=== PATIENT | female | born 1945 | race African-American/Black ===

== ENCOUNTER 2017-07-19 19:03 | Inpatient (IN) ==
--- NOTE | 2017-07-19 19:29 | Emergency Department Note ---
Arrival - Arrival Chief Complaint: Altered Mental Status ED Nursing Triage Note: Pt arrives via ems from [facility] for further eval of altered mental status and abnormal findings of ct. Pt has history of dementia and according to family she has worsened over the past 2 weeks. PT is awake alert and oriented to self and place at times. Mode of Arrival: Stretcher Limitations: No Limitations Source: Patient, Family Time Seen by Provider: 07/19/17 19:25 - History of Present Illness HPI Narrative: This 71-year-old black female presents on transfer from [facility] with a history of the last 12 hours having severe dizziness and ataxia to the point that she could not ambulate. Her nieces found her in her bed this morning because she could not get out of bed because of dizziness. Subsequent evaluation at [facility] revealed on CT evidence of new cerebellar infarct versus a mass. The patient does have chronic dementia but carries on conversations normally with orientation to person and place. The nieces state this morning she was quite confused. At no time did the patient have complaints of chest pain, shortness of breath, nausea, vomiting, headache, slurred speech, or focal deficit. On evaluation at this time she seems very with it with orientation to person, time, and to a lesser degree place Onset (ago): hour(s) (Patient presents 12 hours post onset of symptoms) Date of Last Menstrual Period: pm Allergies/Adverse Reactions: Allergies Allergy/AdvReac Type Severity Reaction Status Date / Time No Known Allergies Allergy Verified 07/19/17 19:16 Home Medications: Home Medications Medication Instructions Recorded Confirmed Type Unable To Obtain [Unable to Obtain] 07/19/17 07/19/17 History Review of System - Review of System 12 point system: reviewed and no additional remarkable complaints except as stated - Review of System Constitutional: Present: as per HPI Respiratory: Present: as per HPI Cardiovascular: Present: as per HPI Gastrointestinal: Present: as per HPI Neurological: Present: as per HPI Medical,Surgical,& Family Hx - Medical History Cardio: History of: Hypertension Neurology: History of: Dementia - Social History Smoking Status: Never smoker Frequency of Alcohol Use: None Type of Drug Use: Unknown Exam Physical Examination: GENERAL: Well developed, well nourished elderly black female in no acute distress. HEENT: Normocephalic. No trauma. Moist mucous membranes. Absent right eye no nystagmus ENT NML NECK: Supple. No adenopathy. CARDIAC: Regular. No murmurs. Heart rate 110 CHEST: Clear to auscultation. No respiratory distress. O2 sat 97% ABDOMEN: Soft. Nontender. Active bowel sounds. EXTREMITIES: No trauma. Normal ROM. No pedal edema. SKIN: No diaphoresis. No rash. NEURO: Alert. Oriented to person and time less so to place. No focal deficits. Vital Signs: Vital Signs Temperature 99.5 F 07/19/17 19:03 Pulse Rate 107 H 07/19/17 19:03 Respiratory Rate 18 07/19/17 19:17 Blood Pressure 192/72 07/19/17 19:03 O2 Sat by Pulse Oximetry 97 07/19/17 19:03 Course - Reevaluation(s) Reevaluation #1: Family presents expectant of admission - Consultations Consultation #1: Discussed with hospitalist service who will admit for further evaluation treatment. Results - Labs Labs: Lab per [place] revealed white blood cell count 10,000, hematocrit 36, glucose 174, BUN 13, creatinine 0.6, sodium 143, potassium 3.4, CK-MB negative CK total 107, troponin negative - Diagnostic Findings Procedure: Chest x-ray: image reviewed by me, report reviewed by me (Chest x- ray per [place] cardiomegaly, status post partial resection of the right lung), CT: image reviewed by me, report reviewed by me (CT head: Infarction in the right cerebellum although mass cannot be excluded with evidence of some mass- effect on the right. Mesencephalic cistern microvascular ischemia noted) Disposition Clinical Impression: Cerebellar infarct, Mild Alzheimer's, Rule out cerebellar mass Case discussed with: patient, patient's family Disposition: Still a Patient Condition: Stable Time of Disposition: 19:41
[2017-07-19] MEDS ORDERED: LABETALOL 20 MG/4 ML SYRINGE IV PRN (20:28)
[2017-07-19] MEDS ORDERED: LABETALOL 20 MG/4 ML SYRINGE IV ONE (20:58)
--- NOTE | 2017-07-19 21:05 | Hospitalist History & Physical ---
Assessment and Plan - Time spent with patient Time spent with patient: Greater than 30 minutes (1) CVA (cerebral vascular accident) Status: Acute Assessment and plan: Admit to hospitalist services. Consult neurology. Consult PT/OT/ST/SS. Neuro checks and vital signs Q1 hour x 4 then Q4 hours. MRI head w/o contrast. Carotid US. Bedside swallow screen. Lipid panel. HA1C. Serial troponins. Repeat CBC and BMP in AM. ASA 325 mg daily. Labetalol 10 mg IV PRN for SBP>220 or DBP >120 O2 per unit protocol. This patient is a full code. Current Visit: Yes (2) HTN (hypertension) Status: Chronic Assessment and plan: Patient denies Hx of HTN and taking any medications. However, initial BP in the ED was 192/72. Labetalol 10 mg IV once for SBP >220 or DBP > 120 followed by labetolol drip. Continue to monitor. Current Visit: Yes (3) Hyperglycemia Status: Acute Assessment and plan: The patient denies any history of DM and takes no diabetes medications. However , labs drawn at [facility] indicate a BG of 174. Obtain HA1c Regular Diet for now; adjust as necessary based on HA1c results. Current Visit: Yes (4) Dementia Status: Chronic Assessment and plan: Patient denies history of dementia and becomes argumentative when it is discussed. She takes no medications for it. Her nieces, however have noted significant mental status changes over the last year and are now concerned about her living alone and continuing to drive. Consult CM/SS. Current Visit: Yes (5) DVT prophylaxis Status: Acute Assessment and plan: Lovenox 40 mg SQ daily. Current Visit: Yes History of Present Illness Chief complaint: AMS History of present illness: Ms. Pollard is a 71 year old female with a past history of dementia and HTN who was transferred to the ED of [facility] from [facility] where she presented with complaints of dizziness, weakness, decreased LOC and AMS. Her CT head performed at [facility] suggested possible CVA or Mass needing MRI for differentiation , so she was transferred to [facility]. Upon examination, she reports that she woke up this morning with a severe headache. When she got up, she was dizzy and weak and she fell. She was eventually able to get her back to bed. When her niece arrived, she was unable to get out of bed to open the door. She denies any past medical history and denies taking any routine medications. Her nieces check on her regularly and state that she is normally very active and able to walk >3 miles to the store. They also report that the patient still drives and lives independently, though signs of her dementia are increasing. They feel she is ready for some type of assistance, but the patient is reluctant. Hospitalist services were consulted, and the patient will be admitted for further evaluation and treatment. Home Medications Medication Instructions Recorded Confirmed Type Unable To Obtain [Unable to Obtain] 07/19/17 07/19/17 History Allergies Allergy/AdvReac Type Severity Reaction Status Date / Time No Known Allergies Allergy Verified 07/19/17 19:16 Medical,Surgical,& Family Hx - Medical History Cardio: History of: Hypertension Neurology: History of: Dementia HEENT: History of: Eye Problem (right eye blindness) Endocrine: No history of: Diabetes Mellitus (IDDM), Diabetes Mellitus (NIDDM) Respiratory: No history of: Asthma, COPD Genitourinary: No history of: Problems Gastrointestinal: No history of: GI Problems Musculoskeletal: No history of: Back/Neck Problems Hematology: No history of: Bleeding Problems, Clotting Problems, Sickle Cell Disease Other: No history of: Cancer - Family History Family History: noncontributory - Social History Smoking Status: Never smoker Have you smoked in the last 12 months: No Frequency of Alcohol Use: None Type of Drug Use: None Marital Status: Lives With:: Alone Functional capacity: independent ambulation 12 point system: reviewed and no additional remarkable complaints except as stated - Constitutional Constitutional: Present: headache(s), weakness. Absent: chills, fever(s) - EENT Eyes: Present: loss of vision (right eye). Absent: blurry vision, diplopia Ears: Absent: decreased hearing, ear discharge, ear pain Nose, mouth and throat: Present: headache(s). Absent: dysphagia, nasal congestion, sore throat - Cardiovascular Cardiovascular: Absent: chest pain at rest, chest pain with activity, dyspnea, edema, orthopnea, palpitations - Respiratory Respiratory: Absent: cough, dyspnea, wheezing - Gastrointestinal Gastrointestinal: Absent: abdominal pain, constipation, diarrhea, hematochezia, melena, nausea, vomiting - Genitourinary Genitourinary: Absent: dysuria, urinary frequency - Musculoskeletal Musculoskeletal: Present: muscle weakness. Absent: arthralgias, joint swelling , myalgias - Neurological Neurological: Present: abnormal gait, confusion, disequilibrium, dizziness, headache(s). Absent: focal weakness, numbness, paresthesias, syncope - Psychiatric Psychiatric: Present: confusion, memory loss. Absent: anxiety, depression - Endocrine Endocrine: Absent: cold intolerance, polydipsia, polyphagia, polyuria - Hematologic/Lymphatic Hematologic/Lymphatic: Absent: easy bleeding, easy bruising Exam - Constitutional Vitals: Period Temp Pulse Resp BP Sys/Chopra Pulse Ox Last 24 Hr 99.5 F-99.5 F 89-107 18-20 185-192/72-89 97-98 Exam: Constitutional System: Afebrile. Awake, alert and oriented x 2. [No] distress. [ No] tremulousness. Head: Normocephalic, atraumatic. Ears, Nose and Throat System: No pain or tenderness. No epistaxis or discharge. Right eye blindness. Eyes System: Pupils equal, round, and reactive. Extraocular muscles intact. Neck: Supple, without adenopathy, [No] jugular venous distention. No thyromegaly , neck mass, or prior surgery apparent. Respiratory System: Chest [clear] to auscultation. Cardiovascular System: Heart with [regular] rate and rhythm. [No] murmur. GI System: Abdomen [soft], [non]tender. [Normo]active bowel sounds present. Musculoskeletal System: limbs with [no] pedal edema. [Full] distal pulses. Normal capillary refill. Neurological System: [No discernable] sensory deficit. [No] aphasia. RUE strength 4/5; all other extremities 5/5. Psychiatric System: Patient demonstrates some amount of confusion in attempting to recall events of today. She also gets easily agitated when discussion of her diagnosis of dementia occurs. Results - Labs Lab Results: I have reviewed the past 24 hour labs
[2017-07-19] MEDS: ENOXAPARIN 40 MG/0.4 ML SYRINGE SUBCUT SCH (22:33)
[2017-07-19 22:52] LABS: Risk Ratio 2.78; Troponin I Only 0.074 NG/ML (0.00-0.045); VLDL CHOLESTEROL 11.8 MG/DL
--- NOTE | 2017-07-20 06:03 | EKG Report ---
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
--- NOTE | 2017-07-20 06:43 | Physician Query Form ---
CLICK EDIT DOCUMENT TO SELECT QUERY ANSWER --> OK --> SIGN PROVIDERS: Make your selection(s) from the choices in EACH section by typing an "x" and enter comments in the comment section. Divya Alva RN, CCDS Certified Clinical Pleasure Craft Sailor (W) [phone] (F) [phone] [email or web address] Please use your independent medical judgment in providing your response. This request does not imply that any particular answer is desired or expected. CLINICAL INDICATORS: (Providers should not edit this section) "Patient denies Hx of HTN and taking any medications. However, initial BP in the ED was 192/72. Labetalol 10 mg IV once for SBP >220 or DBP > 120 followed by labetolol drip." Note: Hypertensive crises can present as hypertensive urgency or hypertensive emergency. Clarify which, if any of the following, is a more accurate diagnosis reflecting the type and acuity of the documented hypertension: TYPE: (x ) Hypertensive Urgency ( ) Hypertensive Emergency ( ) Uncontrolled chronic hypertension at baseline ( ) Other, please specify: ( ) Clinically unable to determine COMMENTS: Criteria Source - Up to Date (This topic last updated: Jan 27, 2016) HYPERTENSIVE URGENCY: Severe hypertension (usually a diastolic blood pressure above 120 mmHg) in asymptomatic patients is referred to as hypertensive urgency. There is no proven benefit from rapid reduction in blood pressure in asymptomatic patients who have no evidence of acute end-organ damage and are at little short-term risk. HYPERTENSIVE EMERGENCY: Severe hypertension (usually a diastolic blood pressure above 120 mmHg) with evidence of acute end-organ damage is defined as a hypertensive emergency. A hypertensive emergency can be life threatening and requires immediate treatment, usually with parenteral medications in a monitored setting. PLEASE ALSO DOCUMENT RESPONSE IN PROGRESS NOTES AND/OR DISCHARGE SUMMARY Use of terms such as suspected, likely, or probable (associated with a specific diagnosis that is being evaluated, monitored, or treated as if it exists) are acceptable and can be restated in the discharge summary if not ruled out. MTDD
[2017-07-20 07:18] LABS: Basophils % 0.4 % (0.0-0.8); Eosinophils % 0.1 % (0.00-10.9); Hematocrit 35.2 VOL% (35.7-47.0); Hemoglobin 11.8 GM/DL (12.0-16.0); Immature Granulocytes % 0.4 %; Immature Granulocytes Absolute 0.04 #; Lymphocytes # 1.4 10*3/uL (1.4-4.0); Lymphocytes % 13.3 % (21.3-54.2); Mean Corpuscular HGB Conc 33.5 GM/DL (32-36); Mean Corpuscular Hemoglobin 27 PG (27-34); Mean Corpuscular Volume 81.9 FL (87-102); Mean Platelet Volume 9.9 FL (9.6-12.0); Monocytes # 0.7 10*3/uL (0.11-0.8); Monocytes % 7.1 % (1.7-12.7); Neutrophils # 8.3 10*3/uL (1.4-7.4); Neutrophils % 78.7 % (38.7-73.9); Platelet Count 327 T/CUMM (130-400); Red Cell Distribution Width 14.8 % (9.3-17.3); White Blood Count 10.5 T/CUMM (4-12)
[2017-07-20 07:54] LABS: Calcium 9.7 MG/DL (8.5-10.1); Osmolality,Calculated 283.3 MOS/KG (273-304); Potassium 3.3 MMOL/L (3.5-5.1)
[2017-07-20] MEDS ORDERED: ASPIRIN 325 MG TABLET PO SCH ×2 (09:00→14:48)
--- NOTE | 2017-07-20 10:23 | ECHO Report ---
Scott Pollard Exam Date: 07/20/2017 08:42 Referring Physician: Technologist: Geri Jensen Age: 71 Ht (in): 67 Wt (lb): 105 Gender: F Exam Location: [facility], [place] Echo Indications: DVT prophylaxis, dementia, CVA, HTN, hyperglycemia, weakness BP: 192 / 72 HR: 53 Rhythm: Sinus Technical Quality: Technically difficult study IMPRESSIONS Left ventricular ejection fraction is estimated at 55 %. There is no regional wall motion abnormality. Mild concentric left ventricular hypertrophy with grade I diastolic dysfunction. Tricuspid regurgitation velocities suggest a RVSP of 16 mmHg + RAP. Mildly thickened mitral valve with mild mitral regurgitation. MEASUREMENTS (Male / Female) Normal Values 2D ECHO LV Diastolic Diameter PLAX 4.0 cm 4.2 - 5.9 / 3.9 - 5.3 cm LV Systolic Diameter PLAX 2.5 cm LV Fractional Shortening PLAX 36.2 % IVS Diastolic Thickness 1.1 cm 0.6 - 1.0 / 0.6 - 0.9 cm LVPW Diastolic Thickness 1.0 cm 0.6 - 1.0 / 0.6 - 0.9 cm Aortic Root Diameter 2.2 cm LA Systolic Diameter LX 3.1 cm 3.0 - 4.0 / 2.7 - 3.8 cm DOPPLER TR Peak Velocity 197.0 cm/s TR Peak Gradient 15.5 mmHg FINDINGS Left Ventricle Normal left ventricular cavity size. Mild concentric left ventricular hypertrophy with grade I diastolic dysfunction. Left ventricular ejection fraction is estimated at 55 %. There is no regional wall motion abnormality. Right Ventricle Normal right ventricular size. Right Atrium Normal right atrial size. Left Atrium Normal left atrial size. Mitral Valve Mildly thickened mitral valve with mild mitral regurgitation. Aortic Valve The aortic valve is trileaflet and has normal motion. Tricuspid Valve Morphologically normal tricuspid valve. Trace tricuspid valve regurgitation. Tricuspid regurgitation velocities suggest a RVSP of 16 mmHg + RAP. Pulmonic Valve Pulmonic valve not well visualized. Pericardium No pericardial effusion. Aorta Normal size aortic root and proximal ascending aorta. Connie Kuhn (Electronically Signed) Final Date: 20 July 2017 10:22
--- NOTE | 2017-07-20 12:33 | Ultrasound Report ---
History is CVA Grayscale, spectral Doppler, and color flow analysis performed and interpreted There is a mild amount of soft and partially calcified plaque on the right and moderate in the left proximal internal carotid arteries Maximum systolic velocities are 123 in the right and 184 on the left Peak systolic ratios are 1.5 the right and 2.3 in the left There is antegrade flow in both vertebral arteries NASCET criteria utilized Impression: 1. findings weakly suggestive of a 50-79% diameter stenosis of the proximal ICA on the left. Correlation with MRA suggested 2. Less than 50% diameter stenosis the proximal right ICA PROCEDURE INTERPRETED AT [facility] DEPARTMENT OF RADIOLOGY Final Report Signed by: Dr. Violeta Valentin
[2017-07-20] MEDS ORDERED: ONDANSETRON 4 MG/2 ML VIAL IV PRN (13:38)
--- NOTE | 2017-07-20 13:50 | Hospitalist Progress Note ---
Assessment and Plan (1) Dizziness Status: Acute Assessment and plan: to r/o acute CVA. Carotid dopplers showed a findings weakly suggestive of a 50-79% diameter stenosis of the proximal ICA on the left. Less than 50% diameter stenosis the proximal right ICA.Echo showed a left ventricular ejection fraction is estimated at 55 %. There is no regional wall motion abnormality.Mild concentric left ventricular hypertrophy with grade I diastolic dysfunction. Plan Follow MRI report Await Neurology Meclizine prn PT/Ot consults continue with ASA/Plavix Current Visit: Yes (2) HTN (hypertension) Status: Chronic Assessment and plan: continue current regime Current Visit: Yes (3) Hyperglycemia Status: Acute Assessment and plan: most likely newly diagnosed DM. HbA1c- 6.5. continue with SSC Insulin and accucheks. Current Visit: Yes (4) Dementia Status: Chronic Assessment and plan: case manger-dc planning Current Visit: Yes (5) Hypokalemia Status: Acute Assessment and plan: will replete, get bmp, Mg in am Current Visit: Yes (6) Dyslipidemia Status: Acute Assessment and plan: resume home statins Current Visit: Yes (7) Carotid stenosis, left Status: Acute Assessment and plan: Carotid doppler showed a weakly suggestive of a 50-79% diameter stenosis of the proximal ICA on the left. Correlation with MRA suggested 2. Less than 50% diameter stenosis the proximal right ICA Plan CTA of the neck Current Visit: Yes Hospitalist: Subjective Interval history: Patient seen, she was still complaining of dizziness. Her carotid doppler which showed a findings weakly suggestive of a 50-79% diameter stenosis of the proximal ICA on the left.MRI report is pending. Exam - Constitutional Vitals: Period Temp Pulse Resp BP Sys/Chopra Pulse Ox Last 24 Hr 98.4 F-99.5 F 71-107 16-20 148-192/56-92 94-99 General appearance: no acute distress - Head Head exam: Present: normal inspection - Respiratory Respiratory exam: Present: clear to auscultation bilaterally - Cardiovascular Cardiovascular exam: Present: regular rate and rhythm - GI/Abdominal GI/Abdominal exam: Present: normal bowel sounds - Extremities Exam Extremities exam: Present: normal inspection - Neurological Exam Neurological exam: Present: alert, oriented X3 Results - Labs CBC & BMP: 07/20/17 07:06 07/20/17 07:06 Lab Results: I have reviewed the past 24 hour labs
[2017-07-20] MEDS ORDERED: POTASSIUM CHLORIDE 20 MEQ/15 ML UDCUP PO ONE (13:57)
[2017-07-20] MEDS ORDERED: MECLIZINE 25 MG TABLET PO PRN ×2 (14:36→14:39)
--- NOTE | 2017-07-20 14:39 | Magnetic Resonance Report ---
History: Altered mental status. History of dementia. Dizziness and weakness. Severe headache Date: 07/20/2017 Study: MRI brain without IV contrast Comparison exam: No previous brain MRI available The brain was imaged in 3 planes on the 1.5 Nayeli magnet without IV contrast, to include FLAIR, diffusion, T2, and T1-weighted sequences. The exam was performed within 24 hours of admission. There is an area of restricted diffusion compatible with acute ischemia measuring at least 4.6 x 4.6 x 1.9 cm in the right cerebellar hemisphere inferiorly, more posteriorly than anteriorly. There is also a punctate focus of acute ischemia in the left cerebellar hemisphere. There is no parenchymal hemorrhage. The ventricles are midline in position without evidence of hydrocephalus. There is no Chiari I malformation. There is no gross pituitary mass. There is no potential area of mass effect otherwise. There is a small amount of patchy increased FLAIR and T2 signal in the periventricular white matter without mass effect compatible with changes of small vessel disease. There is normal flow void in the superior sagittal sinus. There is no acute extra-axial hematoma. Impression: Large area of acute ischemia in the right cerebellar hemisphere, predominantly in a right PICA distribution. A second focus of ischemia in the left cerebellar hemisphere would also raise the question of basilar artery level ischemic event. There is a gross flow void in the basilar artery. No parenchymal hemorrhage Mild periventricular small vessel disease PROCEDURE INTERPRETED AT [facility] DEPARTMENT OF RADIOLOGY Final Report Signed by: Dr. Maru Reyes
--- NOTE | 2017-07-20 18:43 | CT Report ---
CT angio neck Indication: Dizziness. CT ANGIOGRAM CAROTID ARTERIES DLP: 106 mGy*cm. One or more of the following dose reduction techniques was used: Automated exposure control, adjustment of the mA and/or kV according the patient size, or use of iterative reconstruction techniques. Technique: Axial thin cuts CT images were obtained from the aortic arch through the skull base during the arterial phase of contrast injection. 3-D vascular MIPs reconstructions and multiplanar reformats were evaluated. Omnipaque 350, 80 cc given. Comparison: None. Findings: Severity of stenosis based on NASCET criteria. Reference downstream ICA diameters are 3.6 mm on the right and 4.0 mm on the left. Minimal atheromatous disease is present at both carotid bifurcations. No measurable stenosis on the right. Left ICA is narrowed to 3.0 mm, consistent with a 25% diameter stenosis, inconsequential. Both external carotid arteries are patent. The left vertebral artery is patent through the skull base. The right vertebral artery arterial enhancement attenuates mid cervical spine, and there is densely calcified atheromatous disease at the origin of the right vertebral artery. Suspect only nominal right vertebral artery flow is present. Calcified atheromatous disease of the aortic arch is significant. No ostial stenosis of the brachiocephalic or left common carotid artery. The left subclavian artery appears slightly narrowed to a diameter of 3.7 mm, measuring 7.2 mm downstream, consistent with 50% diameter stenosis at the left subclavian origin. Both subclavian arteries are patent distally. No superior mediastinal lymphadenopathy. No axillary or cervical chain lymphadenopathy. Interstitial scarring of the pulmonary apices, emphysema noted. Nodular mucosal thickening of the left maxillary sinus is present. The remainder paranasal sinuses appear clear. Impression: 1. No measurable stenosis of the right ICA origin. Only 25% diameter stenosis left ICA origin, inconsequential. 2. Calcified atheromatous disease, especially the aortic arch. 50% diameter stenosis at the origin of the left subclavian artery. 3. Significant pulmonary emphysema. Scarring of the pulmonary apices. 4. Minimal left maxillary sinusitis. PROCEDURE INTERPRETED AT [facility] DEPARTMENT OF RADIOLOGY Final Report Signed by: Buster Mohr M.D.
[2017-07-20] MEDS: ATORVASTATIN 40 MG TABLET PO SCH (20:32)
[2017-07-20] MEDS: ENOXAPARIN 40 MG/0.4 ML SYRINGE SUBCUT SCH (20:33)
[2017-07-20] MEDS ORDERED: SIMVASTATIN 20 MG TABLET PO SCH (21:00)
--- NOTE | 2017-07-21 04:10 | Event Note ---
Nurse called to report that patient fell while attempting to go to the bathroom. Nurse states that the patient reports hitting her forehead on the garbage can and her left knee on the ground. The nurse reports that a red caro is on the knee, but no skin changes to patient's head. Vital signs stable. Patient is awake, alert and oriented. CT head w/o contrast and xray of left knee ordered.
[2017-07-21 05:55] LABS: Basophils % 0.5 % (0.0-0.8); Eosinophils % 0.2 % (0.00-10.9); Hematocrit 37.6 VOL% (35.7-47.0); Hemoglobin 12.4 GM/DL (12.0-16.0); Immature Granulocytes % 0.5 %; Immature Granulocytes Absolute 0.04 #; Lymphocytes # 1.2 10*3/uL (1.4-4.0); Lymphocytes % 14.4 % (21.3-54.2); Mean Corpuscular Hemoglobin 27 PG (27-34); Mean Corpuscular Volume 81.9 FL (87-102); Mean Platelet Volume 9.9 FL (9.6-12.0); Monocytes # 0.8 10*3/uL (0.11-0.8); Neutrophils # 6.3 10*3/uL (1.4-7.4); Neutrophils % 75.4 % (38.7-73.9); Platelet Count 312 T/CUMM (130-400); Red Blood Count 4.59 MC/CUMM (3.8-5.5); Red Cell Distribution Width 14.9 % (9.3-17.3); White Blood Count 8.3 T/CUMM (4-12)
--- NOTE | 2017-07-21 06:34 | XRay Report ---
Left knee, 3 views History is fall with left knee injury and pain There is diffuse demineralization. There are miniscule osteophytes with minimal medial compartment joint space loss Appearance of the medial tibial plateau felt to be a chronic. No definite fracture or joint effusion seen. No aggressive periosteal reaction seen Impression: 1. Diffuse demineralization 2. Minimal degenerative changes PROCEDURE INTERPRETED AT [facility] DEPARTMENT OF RADIOLOGY Final Report Signed by: Dr. Violeta Valentin
[2017-07-21 06:35] LABS: Calcium 9.2 MG/DL (8.5-10.1); Potassium 3.3 MMOL/L (3.5-5.1)
--- NOTE | 2017-07-21 06:35 | CT Report ---
History is fall with head injury and pain Comparison 07/19/2017 Again seen is a late acute or early subacute-appearing cortical infarct in the right cerebellum. No new areas of hemorrhage or mass effects seen no other more acute cortical stroke identified Elongation of the globe of the right orbit again demonstrated. The large of remote lamina papyracea fracture on the left again seen Impression: A late acute or early subacute right cerebellar infarct again demonstrated The CT exam was performed using one or more of the following dose reduction techniques: Automated exposure control, adjustment of the mA and/or kV according to patient size, or use of iterative reconstruction technique. PROCEDURE INTERPRETED AT [facility] DEPARTMENT OF RADIOLOGY Final Report Signed by: Dr. Violeta Valentin
[2017-07-21] MEDS: ASPIRIN CHEW 81 MG TABLET PO SCH (09:38)
[2017-07-21] MEDS: CLOPIDOGREL 75 MG TABLET PO SCH (09:38)
[2017-07-21] MEDS ORDERED: ALBUTEROL/IPRATROPIUM 3 ML NEB RESP TX PRN (09:49)
--- NOTE | 2017-07-21 11:39 | XRay Report ---
History is productive cough Comparison 07/19/2017 Mediastinal and hilar contours unchanged. Clips and suture lines in the right hilum again seen Blunting the right costophrenic angle remains without the right infiltrates seen. Impression: No interval change described above PROCEDURE INTERPRETED AT [facility] DEPARTMENT OF RADIOLOGY Final Report Signed by: Dr. Violeta Valentin
--- NOTE | 2017-07-21 14:49 | Neurology Consult Note ---
History of Present Illness History of present illness: Ms. Pollard is a 71 year old female with a past history of dementia and HTN who was admitted to [facility] with complaints of dizziness, weakness, decreased LOC and change in mental state. Her CT head performed at the outside hospital suggested possible CVA or Mass needing MRI for differentiation, so she was transferred to [facility]. she reports that she woke up yesterday morning with a severe headache. When she got up, she was dizzy and weak and she fell. She was eventually able to get her back to bed. When her niece arrived, she was unable to get out of bed to open the door. She denies any past medical history and denies taking any routine medications. She quit smoking sometime ago. Her nieces check on her regularly and state that she is normally very active and able to walk >3 miles to the store. They also report that the patient still drives and lives independently, though signs of her dementia are increasing. MRI of the brain reveals large right cerebellar hemisphere acute infarct. Carotid Dopplers are unremarkable. CT angiogram are negative. Echocardiogram reveals ejection fraction of 55%. Patient has already been taking Plavix at home. This is an embolic stroke Home Medications Medication Instructions Recorded Confirmed Type Clopidogrel [Plavix] 75 mg PO DAILY 07/20/17 07/20/17 History Doxycycline Hyclate 100 mg PO BID 07/20/17 07/20/17 History Insulin Detemir [Levemir FlexPen] 20 units SUBCUT BEDTIME 07/20/17 07/20/17 History Lisinopril 20 mg PO DAILY 07/20/17 07/20/17 History Simvastatin 20 mg PO BEDTIME 07/20/17 07/20/17 History glipiZIDE XL [Glucotrol Xl] 10 mg PO DAILY W/BREAKFAST 07/20/17 07/20/17 History Allergies Allergy/AdvReac Type Severity Reaction Status Date / Time No Known Allergies Allergy Verified 07/19/17 19:16 12 point system: reviewed and no additional remarkable complaints except as stated Medical,Surgical,& Family Hx - Medical History Cardio: History of: Hypertension Neurology: History of: Dementia HEENT: History of: Eye Problem (right eye blindness) Endocrine: No history of: Diabetes Mellitus (IDDM), Diabetes Mellitus (NIDDM) Respiratory: History of: Lung Cancer No history of: Asthma, COPD Genitourinary: No history of: Problems Gastrointestinal: No history of: GI Problems Musculoskeletal: No history of: Back/Neck Problems Hematology: No history of: Bleeding Problems, Clotting Problems, Sickle Cell Disease Other: No history of: Cancer - Surgical History Thoracic Surgeries: Surgical HX of;: Lobectomy (Partial right) Patient denies;: Organ Transplant Neurologic Surgeries: Patient denies: Neurologic Surgery Abdominal Surgeries: Patient denies: Abdominal Surgery Reproductive Surgeries: Patient denies;: Genitourinary Surgery, Gynecologic Surgery - Social History Smoking Status: Never smoker Frequency of Alcohol Use: None Type of Drug Use: None Exam - Constitutional Vitals: Period Temp Pulse Resp BP Sys/Chopra Pulse Ox Last 24 Hr 96.9 F-99.0 F 78-103 17-20 147-171/62-88 90-98 Exam: GENERAL: Patient is in no acute distress. NECK: Neck is supple. There is no JVD. No carotid bruits present. No thyroid masses. CVS: First and second heart sounds are normal. There is no S3 present. Regular rate and rhythm. RESPIRATORY: Lungs are clear to auscultation without any rales or rhonchi. ABDOMEN: Soft and non-tender. Bowel sounds are present. There is no hepatosplenomegaly. EXT: There is no palpable edema. Peripheral pulses are present. Skin: No rashes Central Nervous system: General: Alert, awake Speech: Fluent Comprehension: Intact and normal Facial expressions: Normal Cranial Nerves: CN1/Olfactory: Normal CN II/ Optic: Normal, Visual Walsh unreliable CN III, and : VIDA & EOMI CN V: Normal & intact CN VII: face is symmetric CNVIII: Normal CN XI/X/XI/XII: Intact and Normal Motor: Bulk and Tone is normal. Strength in the right 3/5 Strength in the left 5/5 Sensory: Grossly intact for all the modalities of PP, LT and temp sense Reflexes: 1+ and symmetrical Cerebellar function: Significant dysmetria upon go to nose and heel to shine testing in the right. Toes: Equivocal Gait: Not tested at this time Results - Labs CBC & BMP: 07/21/17 05:39 07/21/17 05:39 Assessment and Plan (1) Acute CVA (cerebrovascular accident) Status: Acute Assessment and plan: Stop aspirin and Plavix. Start Eliquis 5 mg twice daily Consult TMR Current Visit: Yes (2) Dementia Status: Chronic Assessment and plan: Add Namenda 5 mg p.o. twice daily Thank you for the consult Current Visit: Yes Specialty Discharge - Follow Up or Referrals
--- NOTE | 2017-07-21 15:31 | Hospitalist Progress Note ---
Assessment and Plan (1) Acute CVA (cerebrovascular accident) Status: Acute Current Visit: Yes (2) CVA (cerebral vascular accident) Status: Acute Assessment and plan: Appreciate input from neurology. Continue physical therapy occupational therapy. Current Visit: Yes Qualifiers: CVA mechanism: embolism (3) Dementia Status: Chronic Current Visit: Yes (4) HTN (hypertension) Status: Chronic Current Visit: Yes Qualifiers: Hypertension type: essential hypertension Qualified Code(s): I10 - Essential (primary) hypertension Hospitalist: Subjective Interval history: The patient is resting comfortably. She does have an embolic stroke. Neurology has seen the patient today. Continue with physical therapy Occupation Therapy. Plan for CBC BMP in a.m. Exam - Constitutional Vitals: Period Temp Pulse Resp BP Sys/Chopra Pulse Ox Last 24 Hr 96.9 F-99.0 F 78-103 17-20 147-171/62-88 90-98 General appearance: normal weight - Head Head exam: Present: normal inspection - Respiratory Respiratory exam: Present: clear to auscultation bilaterally - Cardiovascular Cardiovascular exam: Present: regular rate and rhythm - GI/Abdominal GI/Abdominal exam: Present: normal bowel sounds - Extremities Exam Extremities exam: Present: normal inspection - Neurological Exam Neurological exam: Present: alert - Psychiatric Psychiatric exam: Present: normal affect, normal mood - Skin Skin exam: Present: normal color Results - Labs CBC & BMP: 07/21/17 05:39 07/21/17 05:39 Specialty Discharge - Follow Up or Referrals
[2017-07-21] MEDS: ENOXAPARIN 40 MG/0.4 ML SYRINGE SUBCUT SCH (20:24)
[2017-07-21] MEDS: ATORVASTATIN 40 MG TABLET PO SCH (20:24)
[2017-07-22 06:43] LABS: Basophils % 0.3 % (0.0-0.8); Eosinophils # 0.1 10*3/uL (0.0-0.87); Eosinophils % 0.7 % (0.00-10.9); Hematocrit 36.4 VOL% (35.7-47.0); Hemoglobin 12.2 GM/DL (12.0-16.0); Immature Granulocytes % 0.2 %; Immature Granulocytes Absolute 0.02 #; Lymphocytes # 1.2 10*3/uL (1.4-4.0); Lymphocytes % 13.9 % (21.3-54.2); Mean Corpuscular HGB Conc 33.5 GM/DL (32-36); Mean Corpuscular Hemoglobin 27 PG (27-34); Mean Corpuscular Volume 81.3 FL (87-102); Mean Platelet Volume 10.1 FL (9.6-12.0); Monocytes # 0.8 10*3/uL (0.11-0.8); Monocytes % 8.8 % (1.7-12.7); Neutrophils # 6.6 10*3/uL (1.4-7.4); Neutrophils % 76.1 % (38.7-73.9); Platelet Count 269 T/CUMM (130-400); Red Blood Count 4.48 MC/CUMM (3.8-5.5); White Blood Count 8.7 T/CUMM (4-12)
[2017-07-22 07:15] LABS: Calcium 8.5 MG/DL (8.5-10.1); Magnesium 2.3 MG/DL (1.8-2.4); Osmolality,Calculated 277.7 MOS/KG (273-304); Potassium 3.3 MMOL/L (3.5-5.1)
[2017-07-22 07:16] LABS: INR 1.1; PT Patient Result 11.5 SECS; Partial Thromboplastin Time 30.5 SECS (0-40)
--- NOTE | 2017-07-22 07:50 | XRay Report ---
Exam: XR chest 1V portable Date: 07/22/2017 4:00 AM Indication: Cough Comparison: 07/21/2017 Technical: AP portable Findings: Surgical clips present in the right hilar region. Some volume loss right lung with mild scarring present. No obvious infiltrate or effusion. ASVD is present. Arthritic change present over the shoulders bilaterally. The heart is normal in size. Impression: 1. Previous surgical changes right hilus and scarring blood loss right lung without acute pathology present on today's study. 2. Component of underlying mild COPD suspected PROCEDURE INTERPRETED AT [facility] DEPARTMENT OF RADIOLOGY Final Report Signed by: Dr. Chuck Crawford
[2017-07-22] MEDS: ASPIRIN CHEW 81 MG TABLET PO SCH (09:43)
[2017-07-22] MEDS: CLOPIDOGREL 75 MG TABLET PO SCH (09:43)
--- NOTE | 2017-07-22 11:26 | Hospitalist Progress Note ---
Assessment and Plan (1) CVA (cerebral vascular accident) Status: Acute Assessment and plan: She is status post a large right cerebellar cerebrovascular accident. She is ready for discharge placement. Current Visit: Yes Qualifiers: CVA mechanism: embolism (2) HTN (hypertension) Status: Chronic Assessment and plan: Her blood pressure today is 145/72. Current Visit: Yes Qualifiers: Hypertension type: essential hypertension Qualified Code(s): I10 - Essential (primary) hypertension (3) Dementia Status: Chronic Current Visit: Yes (4) Hypokalemia Status: Acute Assessment and plan: Her potassium today is 3.3. She is receiving potassium chloride replacement. Current Visit: Yes Hospitalist: Subjective Interval history: Patient is doing well with no new complaints. She is status post a CVA. Discharge planning for placement has been initiated. Exam - Constitutional Vitals: Period Temp Pulse Resp BP Sys/Chopra Pulse Ox Last 24 Hr 97.8 F-100.8 F 101-120 18-22 145-175/72-86 90-94 General appearance: no acute distress - Head Head exam: Present: normal inspection - Neck Neck exam: Present: normal inspection - Respiratory Respiratory exam: Present: clear to auscultation bilaterally - Cardiovascular Cardiovascular exam: Present: regular rate and rhythm - GI/Abdominal GI/Abdominal exam: Present: normal bowel sounds, soft, other (Nontender with no palpable masses or hepatosplenomegaly.) - Extremities Exam Extremities exam: Present: normal inspection - Neurological Exam Neurological exam: Present: alert - Skin Skin exam: Present: normal color, warm, intact Results - Labs CBC & BMP: 07/22/17 06:17 07/22/17 06:17 Specialty Discharge - Follow Up or Referrals
[2017-07-22] MEDS: POTASSIUM CHLORIDE 20 MEQ TABLET PO SCH (14:24)
[2017-07-22] MEDS: BISACODYL 5 MG TABLET PO PRN (14:24)
[2017-07-22] MEDS: ENOXAPARIN 40 MG/0.4 ML SYRINGE SUBCUT SCH (20:10)
[2017-07-22] MEDS: ATORVASTATIN 40 MG TABLET PO SCH (20:10)
[2017-07-23 05:49] LABS: Basophils % 0.4 % (0.0-0.8); Eosinophils # 0.1 10*3/uL (0.0-0.87); Eosinophils % 0.6 % (0.00-10.9); Hematocrit 36.9 VOL% (35.7-47.0); Hemoglobin 12.2 GM/DL (12.0-16.0); Immature Granulocytes % 0.6 %; Immature Granulocytes Absolute 0.07 #; Lymphocytes # 1.3 10*3/uL (1.4-4.0); Lymphocytes % 11.7 % (21.3-54.2); Mean Corpuscular HGB Conc 33.1 GM/DL (32-36); Mean Corpuscular Hemoglobin 27 PG (27-34); Mean Corpuscular Volume 82.2 FL (87-102); Mean Platelet Volume 9.7 FL (9.6-12.0); Monocytes # 0.9 10*3/uL (0.11-0.8); Monocytes % 7.6 % (1.7-12.7); Neutrophils % 79.1 % (38.7-73.9); Platelet Count 240 T/CUMM (130-400); Red Blood Count 4.49 MC/CUMM (3.8-5.5); Red Cell Distribution Width 14.9 % (9.3-17.3); White Blood Count 11.3 T/CUMM (4-12)
[2017-07-23 06:17] LABS: Calcium 8.9 MG/DL (8.5-10.1); Osmolality,Calculated 281.4 MOS/KG (273-304); Potassium 3.7 MMOL/L (3.5-5.1)
[2017-07-23] MEDS ORDERED: POTASSIUM CHLORIDE 20 MEQ TABLET PO SCH (09:00)
[2017-07-23] MEDS ORDERED: LISINOPRIL 20 MG TABLET PO SCH (09:00)
[2017-07-23] MEDS: ASPIRIN CHEW 81 MG TABLET PO SCH (09:01)
[2017-07-23] MEDS: CLOPIDOGREL 75 MG TABLET PO SCH (09:01)
[2017-07-23] MEDS: BISACODYL 5 MG TABLET PO PRN (09:01)
[2017-07-23] MEDS: POTASSIUM CHLORIDE 20 MEQ TABLET PO SCH (09:01)
[2017-07-23 12:15] VITALS: BP 151/64
--- NOTE | 2017-07-23 13:04 | Hospitalist Progress Note ---
Assessment and Plan (1) Acute CVA (cerebrovascular accident) Status: Acute Current Visit: Yes (2) CVA (cerebral vascular accident) Status: Acute Assessment and plan: Appreciate input from neurology. Continue physical therapy occupational therapy. Awaiting to transfer to rehab hospital. Current Visit: Yes Qualifiers: CVA mechanism: embolism (3) Dementia Status: Chronic Current Visit: Yes (4) HTN (hypertension) Status: Chronic Current Visit: Yes Qualifiers: Hypertension type: essential hypertension Qualified Code(s): I10 - Essential (primary) hypertension Hospitalist: Subjective Interval history: The patient is sitting up in bed visiting with family. Family member feels that Ms. Pollard is a little stronger. She is scheduled to transfer to [facility] at some point today. No fevers or chills. No complaints. Exam - Constitutional Vitals: Period Temp Pulse Resp BP Sys/Chopra Pulse Ox Last 24 Hr 97.4 F-101.2 F 84-134 16-20 139-152/60-77 90-93 General appearance: normal weight - Head Head exam: Present: normal inspection - Eye Eye exam: Present: EOMI - ENT ENT exam: Present: normal exam - Neck Neck exam: Present: normal inspection - Respiratory Respiratory exam: Present: clear to auscultation bilaterally - Cardiovascular Cardiovascular exam: Present: regular rate and rhythm - GI/Abdominal GI/Abdominal exam: Present: normal bowel sounds - Neurological Exam Neurological exam: Present: alert - Psychiatric Psychiatric exam: Present: normal affect, normal mood Results - Labs CBC & BMP: 07/23/17 05:28 07/23/17 05:28 Specialty Discharge - Follow Up or Referrals
[2017-07-23] MEDS ORDERED: ACETAMINOPHEN 325 MG TABLET PO ONE (13:51)
--- NOTE | 2017-07-23 14:07 | Discharge Summary ---
Hospital Course - Hospital Course Hospital Course: This hospitalization included patient admitted in transfer from [facility] for CVA. She had a follow-up MRI that confirmed right cerebellar CVA. She was evaluated by Dr. Lorenzana and underwent evaluation physical therapy. The patient was hemodynamically stable. She had an echocardiogram that showed an EF of approximately 55%. CT angiogram showed 25% stenosis on the right approximately 50% stenosis on the left. Moreover, she had evidence of pulmonary emphysema. Chest x-ray showed no evidence of infiltrates. Glucoses have been less than 150. She has been able to tolerate her diet. Urine culture has been negative. She participated with physical therapy. At present she has been accepted to [facility]. - Time spent with patient Time with patient DS: Greater than 30 minutes (35 minutes) Diagnosis - Discharge Diagnosis (1) Acute CVA (cerebrovascular accident) Status: Acute (2) CVA (cerebral vascular accident) Status: Acute (3) Dementia Status: Chronic (4) HTN (hypertension) Status: Chronic Specialty Discharge - Follow Up or Referrals Discharge Plan - Discharge Data Disposition: Disch/Xfer-Ip Rehab Fac Condition at Discharge: Stable Discharge Diet: diabetic diet Activity: as per physical therapy Hygiene: no restrictions Contact your physician if you experience:: fever over 101 - Discharge Medications New Aspirin Chew Tab 81 mg PO DAILY tablet Meclizine [Antivert] 25 mg PO Q4H PRN tablet PRN Reason: Dizziness Albuterol/Ipratropium Neb [Duoneb] 3 ml RESP TX RT Q4H PRN PRN Reason: Shortness Of Breath/Wheezing Bisacodyl Tab [Dulcolax Tab] 10 mg PO DAILY PRN tablet PRN Reason: Constipation Continue Clopidogrel [Plavix] 75 mg PO DAILY Doxycycline Hyclate 100 mg PO BID Simvastatin 20 mg PO BEDTIME Lisinopril 20 mg PO DAILY glipiZIDE XL [Glucotrol Xl] 10 mg PO DAILY W/BREAKFAST Discontinued Insulin Detemir [Levemir FlexPen] 20 units SUBCUT BEDTIME - Follow Up or Referral - Forms/Instructions Instructions: Ischemic Stroke (DC), Self Care Measures After a Stroke (DC) Exam - Constitutional Vitals: Period Temp Pulse Resp BP Sys/Chopra Pulse Ox Last 24 Hr 97.4 F-101.2 F 84-134 16-20 139-152/60-77 90-93 General appearance: over weight - Head Head exam: Present: normal inspection - Neck Neck exam: Present: normal inspection - Respiratory Respiratory exam: Present: clear to auscultation bilaterally - Cardiovascular Cardiovascular exam: Present: regular rate and rhythm - GI/Abdominal GI/Abdominal exam: Present: normal bowel sounds - Extremities Exam Extremities exam: Present: normal inspection, full ROM - Neurological Exam Neurological exam: Present: alert - Psychiatric Psychiatric exam: Present: normal affect, normal mood, other (History of dementia) - Skin Skin exam: Present: normal color, warm Discharge Results Procedures and tests throughout hospitalization: Pending Orders 07/22/17 13:43 Urine Culture Routine Labs on day of discharge: Labs from last 24 hours 07/23/17 07/23/17 05:28 05:28 WBC 11.3 RBC 4.49 Hgb 12.2 Hct 36.9 MCV 82.2 L MCH 27 MCHC 33.1 RDW 14.9 Plt Count 240 MPV 9.7 Neut % (Auto) 79.1 H Lymph % (Auto) 11.7 L [place] % (Auto) 7.6 Eos % (Auto) 0.6 Baso % (Auto) 0.4 Neut # (Auto) 9.0 H Lymph # (Auto) 1.3 L [place] # (Auto) 0.9 H Eos # (Auto) 0.1 Baso # (Auto) 0.0 Immature Gran % 0.6 Nucleated RBC % 0.0 Immature Gran # 0.07 Nucleated RBCs # 0.00 Immature Plt Fraction 0.0 Sodium 140 Potassium 3.7 Chloride 102 Carbon Dioxide 31 Anion Gap 10.7 BUN 16 Creatinine 0.60 GFR Calculation 92 BUN/Creatinine Ratio 26.00 H Glucose 132 H Calculated Osmolality 281.4 Calcium 8.9 Preliminary micro results at discharge 07/22/17 13:43 Urine Culture - Preliminary Urine,Voided No Growth at 24 hours. DS: Provider Date of admission: 07/19/17 20:28 Primary care physician: . No PCP Attending physician on admission: Buster Dempsey MD Consults: 07/19/17 20:28 Consult to Case Mgmt/Social Srvs [CONS] Routine Reason for Case Mgmt/Social Srvs: Discharge Planning Consult to Occupational Therapy [CONS] Routine Reason for Occupational Therapy: Evaluate and Treat Consult Comment: Stroke Consult to Physical Therapy [CONS] Routine Reason for Physical Therapy: Evaluate and Treat Consult Comment: stroke 07/19/17 20:45 Consult to Physician [CONS] Routine Comment: AMS, CVA symptoms. Ok to see in AM. Consulting Provider: Bunny Goins Consult to Specialist Group: Neurology When should Consulting Provider be notified: Now Date Notified: 07/20/17 Time Notified: 10:01 Consult Notification Comment: Dr. Goins on bypass call back on 07/21 @10:56 Dr goins still on bypass 07/20/17 01:23 Consult to Dietitian [CONS] Routine Reason for Dietitian: Dietary Consult 07/20/17 16:43 Consult to Physician [CONS] Routine Comment: Consulting Provider: Avery Elizabeth Person Notified: office aware Date Notified: 07/20/17 Time Notified: 16:44 Consult Notification Comment: talk to Magdalena @10:50 07/21 she stated was out of town.. be back monday07/21/17 12:16 Consult to Case Mgmt/Social Srvs [CONS] Routine Reason for Case Mgmt/Social Srvs: Rehab Consult Comment: [facility] to go [facility] Monday Discharging clinician: Henrique Taylor Jr., MD
== END 2017-07-23 15:43 | DRG 66 ==
LOC: EDUNIT# → EDBD → N.ED 19:03 → SUATTDRO 20:28 → N.EDINP 20:28 → N.5E 21:39
PROVIDERS: ADMIT Internal Medicine; ATTEND Internal Medicine Nephrology

== ENCOUNTER 2021-10-22 18:14 | Inpatient (IN) ==
[2021-10-22] MEDS ORDERED: hydrALAZINE 20 MG/1 ML VIAL IV STA (18:31)
[2021-10-22 18:54] LABS: Eosinophils # 0.1 10*3/uL (0.0-0.87); Eosinophils % 1.5 % (0.00-10.9); Hematocrit 29.6 VOL% (35.7-47.0); Immature Granulocytes % 0.2 %; Immature Granulocytes Absolute 0.01 #; Lymphocytes # 1.4 10*3/uL (1.4-4.0); Lymphocytes % 34.2 % (21.3-54.2); Mean Corpuscular HGB Conc 30.4 GM/DL (32-36); Mean Corpuscular Volume 86.3 FL (87-102); Mean Platelet Volume 10.1 FL (9.6-12.0); Monocytes % 10.3 % (1.7-12.7); Neutrophils % 52.8 % (38.7-73.9); Platelet Count 238 T/CUMM (130-400); Red Blood Count 3.43 MC/CUMM (3.8-5.5); Red Cell Distribution Width 18.6 % (9.3-17.3); White Blood Count 4.1 T/CUMM (4-12)
[2021-10-22 19:14] LABS: Alanine Aminotransferase 14 U/L (13-56); Albumin 2.8 G/DL (3.4-5.0); Alkaline Phosphatase 94 U/L (45-117); Aspartate Amino Transferase 11 U/L (0-37); Bilirubin,Total < 0.39 MG/DL (0.20-1.00); Blood Urea Nitrogen 22 MG/DL (7-18); Calcium 7.8 MG/DL (8.5-10.1); Carbon Dioxide 27 MMOL/L (21-32); Estimated Glom Filtration Rate 58 ML/MIN; Glucose 108 MG/DL (74-106); Osmolality,Calculated 291.7 MOS/KG (273-304); Potassium 3.2 MMOL/L (3.5-5.1); Sodium 145 MMOL/L (136-145); Total Protein 6.1 G/DL (6.4-8.2)
[2021-10-22 19:20] LABS: PT Patient Result 11.2 SECS (10.5-12.0)
[2021-10-22 19:22] LABS: Bilirubin,Urine Negative (Negative); Blood, Urine Negative (Negative); Glucose,Urine (UA) Negative (Negative); Hyaline Casts,Urine 3 /LPF (0-3); Ketones,Urine Negative (Negative); Mucus,Urine Occasional /LPF (Occasional); Nitrite,Urine Negative (Negative); Protein,Urine Negative; RBC,Urine 2 /HPF (0-4); Squamous Epithelial Cell,Urine Occasional /HPF (0-10); Urine Appearance CLEAR (Clear); Urine Color Yellow (Yellow); Urine Specific Gravity 1.017 (1.001-1.035)
[2021-10-22] MEDS ORDERED: ASPIRIN CHEW 81 MG TABLET PO STA (20:11)
[2021-10-22] MEDS ORDERED: METOPROLOL TARTRATE 5 MG/5 ML VIAL IV STA (20:11)
[2021-10-22] MEDS ORDERED: DEXTROSE 50% 25 GM/50 ML VIAL IV PRN (20:23)
[2021-10-22] MEDS ORDERED: GLUCAGON 1 MG VIAL IM PRN ×2 (20:23)
[2021-10-22] MEDS ORDERED: ONDANSETRON 4 MG/2 ML VIAL IV PRN (20:23)
[2021-10-22] MEDS ORDERED: NICOTINE 21 MG/24 HR PATCH TRANSDERM PRN (20:23)
[2021-10-22] MEDS ORDERED: MORPHINE 2 MG/1 ML SYRINGE IV PRN (20:23)
[2021-10-22] MEDS ORDERED: hydrALAZINE 20 MG/1 ML VIAL IV PRN (20:23)
[2021-10-22] MEDS ORDERED: DOCUSATE SODIUM 100 MG CAPSULE PO PRN (20:23)
[2021-10-22] MEDS ORDERED: diphenhydrAMINE CAP 25 MG CAPSULE PO PRN (20:23)
[2021-10-22] MEDS ORDERED: ACETAMINOPHEN 325 MG TABLET PO PRN (20:23)
[2021-10-22] MEDS ORDERED: guaiFENesin/DM ER 600-30 MG TABLET PO PRN (20:23)
[2021-10-22] MEDS ORDERED: HALOPERIDOL 5 MG/ML AMP IM STA (20:27)
[2021-10-22] MEDS ORDERED: DEXTROSE 50% 25 GM/50 ML SYRINGE IV PRN (20:27)
[2021-10-22] MEDS ORDERED: SODIUM CHLORIDE 0.9% 1,000 ML IV SCH (20:30)
[2021-10-22 20:43] LABS: Partial Thromboplastin Time > 211.8 SECS (23.8-32.1)
[2021-10-22 21:04] LABS: Folate 20.87 NG/ML (5.38-24.0); Vitamin B12 798 PG/ML (211-911)
[2021-10-22 21:19] LABS: Basophils % 0.7 % (0.0-0.8); Eosinophils # 0.1 10*3/uL (0.0-0.87); Hematocrit 36.1 VOL% (35.7-47.0); Immature Granulocytes % 0.7 %; Immature Granulocytes Absolute 0.03 #; Lymphocytes # 1.6 10*3/uL (1.4-4.0); Lymphocytes % 36.4 % (21.3-54.2); Mean Corpuscular HGB Conc 31.9 GM/DL (32-36); Mean Platelet Volume 9.9 FL (9.6-12.0); Monocytes % 8.9 % (1.7-12.7); Neutrophils % 51.3 % (38.7-73.9); Platelet Count 263 T/CUMM (130-400); Red Cell Distribution Width 18.6 % (9.3-17.3); White Blood Count 4.5 T/CUMM (4-12)
[2021-10-22 21:20] LABS: Hemoglobin 11.5 GM/DL (12.0-16.0)
[2021-10-22] MEDS ORDERED: LORazepam 2 MG/1 ML VIAL IV STA (21:49)
[2021-10-22 22:26] LABS: Sedimentation Rate-Westergren 42 MM/HR (0-30)
[2021-10-22] MEDS: amLODIPine 10 MG TABLET PO SCH (23:10)
[2021-10-22] MEDS: HEPARIN 5,000 UNIT/1 ML VIAL SUBCUT SCH (23:10)
[2021-10-23] MEDS ORDERED: DEXT 5% NACL 0.9% KCL 40 MEQ 40 MEQ/1,000 ML BAG IV SCH
[2021-10-23 05:05] LABS: Basophils % 0.5 % (0.0-0.8); Eosinophils # 0.1 10*3/uL (0.0-0.87); Eosinophils % 0.7 % (0.00-10.9); Hematocrit 34.4 VOL% (35.7-47.0); Hemoglobin 10.8 GM/DL (12.0-16.0); Immature Granulocytes % 0.5 %; Immature Granulocytes Absolute 0.04 #; Lymphocytes # 1.7 10*3/uL (1.4-4.0); Lymphocytes % 19.9 % (21.3-54.2); Mean Corpuscular HGB Conc 31.4 GM/DL (32-36); Mean Corpuscular Volume 83.9 FL (87-102); Mean Platelet Volume 9.9 FL (9.6-12.0); Monocytes % 8.2 % (1.7-12.7); Neutrophils % 70.2 % (38.7-73.9); Platelet Count 260 T/CUMM (130-400); Red Cell Distribution Width 18.6 % (9.3-17.3); White Blood Count 8.7 T/CUMM (4-12)
[2021-10-23 05:16] LABS: Partial Thromboplastin Time 24.5 SECS (23.8-32.1)
[2021-10-23 05:22] LABS: Calcium 9.1 MG/DL (8.5-10.1); Osmolality,Calculated 285.1 MOS/KG (273-304); Potassium 3.5 MMOL/L (3.5-5.1)
[2021-10-23] MEDS: MEMANTINE 5 MG TABLET PO SCH ×2 (10:22→21:59)
[2021-10-23] MEDS: lisinopriL 20 MG TABLET PO SCH (10:22)
[2021-10-23] MEDS: FERROUS SULFATE 325 MG TABLET PO SCH (10:22)
[2021-10-23] MEDS: ASPIRIN CHEW 81 MG TABLET PO SCH (10:22)
[2021-10-23] MEDS: PANTOPRAZOLE 40 MG TABLET PO SCH (10:23)
[2021-10-23] MEDS: CETIRIZINE 10 MG TABLET PO SCH (10:23)
[2021-10-23] MEDS: HEPARIN 5,000 UNIT/1 ML VIAL SUBCUT SCH ×2 (10:23→21:59)
[2021-10-23 12:08] LABS: % Iron Saturation 17.2 % (18-50); Ferritin 83.3 ng/mL (8-252)
[2021-10-23] MEDS: ZALEPLON 5 MG CAPSULE PO PRN (21:59)
[2021-10-23] MEDS: ATORVASTATIN 10 MG TABLET PO SCH (21:59)
[2021-10-23] MEDS: traZODone 50 MG TABLET PO SCH (21:59)
[2021-10-23] MEDS: DONEPEZIL 10 MG TABLET PO SCH (21:59)
[2021-10-23] MEDS: amLODIPine 10 MG TABLET PO SCH (21:59)
[2021-10-24] MEDS: lisinopriL 20 MG TABLET PO SCH (10:00)
[2021-10-24] MEDS: FERROUS SULFATE 325 MG TABLET PO SCH (10:00)
[2021-10-24] MEDS: PANTOPRAZOLE 40 MG TABLET PO SCH (10:00)
[2021-10-24] MEDS: CETIRIZINE 10 MG TABLET PO SCH (10:00)
[2021-10-24] MEDS: MEMANTINE 5 MG TABLET PO SCH ×2 (10:00→22:32)
[2021-10-24] MEDS: ASPIRIN CHEW 81 MG TABLET PO SCH (10:01)
[2021-10-24] MEDS: HEPARIN 5,000 UNIT/1 ML VIAL SUBCUT SCH ×2 (10:01→22:32)
[2021-10-24] MEDS: amLODIPine 10 MG TABLET PO SCH (22:32)
[2021-10-24] MEDS: ZALEPLON 5 MG CAPSULE PO PRN (22:32)
[2021-10-24] MEDS: traZODone 50 MG TABLET PO SCH (22:32)
[2021-10-24] MEDS: ATORVASTATIN 10 MG TABLET PO SCH (22:32)
[2021-10-24] MEDS: DONEPEZIL 10 MG TABLET PO SCH (22:32)
[2021-10-25 05:16] LABS: Albumin 3.2 G/DL (3.4-5.0); Bilirubin,Total 0.7 MG/DL (0.20-1.00); Calcium 9.3 MG/DL (8.5-10.1); Potassium 3.7 MMOL/L (3.5-5.1); Risk Ratio 2.81; Total Protein 7.5 G/DL (6.4-8.2); VLDL Cholesterol 17.2 MG/DL
[2021-10-25 05:31] LABS: Basophils % 0.4 % (0.0-0.8); Eosinophils % 0.5 % (0.00-10.9); Hematocrit 38.8 VOL% (35.7-47.0); Hemoglobin 12.2 GM/DL (12.0-16.0); Immature Granulocytes % 0.4 %; Immature Granulocytes Absolute 0.03 #; Lymphocytes # 1.7 10*3/uL (1.4-4.0); Lymphocytes % 20.5 % (21.3-54.2); Mean Corpuscular HGB Conc 31.4 GM/DL (32-36); Mean Corpuscular Volume 84.2 FL (87-102); Mean Platelet Volume 9.7 FL (9.6-12.0); Monocytes % 8.5 % (1.7-12.7); Neutrophils % 69.7 % (38.7-73.9); Platelet Count 293 T/CUMM (130-400); Red Blood Count 4.61 MC/CUMM (3.8-5.5); Red Cell Distribution Width 18.9 % (9.3-17.3); White Blood Count 8.3 T/CUMM (4-12)
[2021-10-25] MEDS: CETIRIZINE 10 MG TABLET PO SCH (08:30)
[2021-10-25] MEDS: HEPARIN 5,000 UNIT/1 ML VIAL SUBCUT SCH (08:30)
[2021-10-25] MEDS: FERROUS SULFATE 325 MG TABLET PO SCH (08:30)
[2021-10-25] MEDS: lisinopriL 20 MG TABLET PO SCH (08:30)
[2021-10-25] MEDS: MEMANTINE 5 MG TABLET PO SCH ×2 (08:30→21:02)
[2021-10-25] MEDS: PANTOPRAZOLE 40 MG TABLET PO SCH (08:30)
[2021-10-25] MEDS: ASPIRIN CHEW 81 MG TABLET PO SCH (08:30)
[2021-10-25 08:36] LABS: Hemoglobin A1 (Alkaline) 97.9 % (96.5-98.5); Hemoglobin A2 (Alkaline) 2.1 % (1.5-3.5)
[2021-10-25] MEDS ORDERED: ONDANSETRON 4 MG TABLET PO PRN (15:47)
[2021-10-25] MEDS ORDERED: ATORVASTATIN 40 MG TABLET PO SCH (21:00)
[2021-10-25] MEDS: TICAGRELOR 90 MG TABLET PO SCH (21:02)
[2021-10-25] MEDS: DOCUSATE SODIUM 100 MG CAPSULE PO SCH (21:02)
[2021-10-25] MEDS: traZODone 50 MG TABLET PO SCH (21:03)
[2021-10-25] MEDS: amLODIPine 10 MG TABLET PO SCH (21:04)
[2021-10-25] MEDS: DONEPEZIL 10 MG TABLET PO SCH (21:04)
[2021-10-26 05:27] LABS: Calcium 9.3 MG/DL (8.5-10.1); Osmolality,Calculated 283.7 MOS/KG (273-304); Potassium 3.9 MMOL/L (3.5-5.1)
[2021-10-26 06:45] LABS: Basophils # 0.1 10*3/uL (0.0-0.2); Basophils % 0.7 % (0.0-0.8); Eosinophils # 0.1 10*3/uL (0.0-0.87); Eosinophils % 0.7 % (0.00-10.9); Hematocrit 39.3 VOL% (35.7-47.0); Hemoglobin 12.1 GM/DL (12.0-16.0); Immature Granulocytes % 0.5 %; Immature Granulocytes Absolute 0.04 #; Lymphocytes # 1.4 10*3/uL (1.4-4.0); Lymphocytes % 19.5 % (21.3-54.2); Mean Corpuscular HGB Conc 30.8 GM/DL (32-36); Mean Corpuscular Volume 84.3 FL (87-102); Mean Platelet Volume 10.2 FL (9.6-12.0); Monocytes % 8.9 % (1.7-12.7); Neutrophils % 69.7 % (38.7-73.9); Platelet Count 322 T/CUMM (130-400); Red Blood Count 4.66 MC/CUMM (3.8-5.5); Red Cell Distribution Width 18.6 % (9.3-17.3); White Blood Count 7.4 T/CUMM (4-12)
[2021-10-26] MEDS: DOCUSATE SODIUM 100 MG CAPSULE PO SCH (08:42)
[2021-10-26] MEDS: ASPIRIN CHEW 81 MG TABLET PO SCH (08:42)
[2021-10-26] MEDS: lisinopriL 20 MG TABLET PO SCH (08:43)
[2021-10-26] MEDS: FERROUS SULFATE 325 MG TABLET PO SCH (08:43)
[2021-10-26] MEDS: TICAGRELOR 90 MG TABLET PO SCH (08:43)
[2021-10-26] MEDS: MEMANTINE 5 MG TABLET PO SCH (08:43)
[2021-10-26] MEDS: CETIRIZINE 10 MG TABLET PO SCH (08:43)
[2021-10-26] MEDS: PANTOPRAZOLE 40 MG TABLET PO SCH (08:43)
[2021-10-26] MEDS ORDERED: CLOPIDOGREL 75 MG TABLET PO SCH (09:00)
[2021-10-26] MEDS ORDERED: MULTIVITAMIN (CENTRUM) TABLET PO SCH (09:00)
[2021-10-26] MEDS ORDERED: ERGOCALCIFEROL 50,000 UNIT CAPSULE PO SCH (09:00)
[2021-10-26 12:25] VITALS: BP 121/76
== END 2021-10-26 16:27 | DRG 65 ==
LOC: EDUNIT# → EDBD → N.EDINP 18:14 → N.ED 18:14 → SUATTDRO 20:23 → N.5E 21:39
PROVIDERS: ADMIT Internal Medicine; ATTEND Internal Medicine

== ENCOUNTER 2021-11-09 12:18 | Inpatient (IN) ==
[2021-11-09 13:46] LABS: Basophils # 0.1 10*3/uL (0.0-0.2); Basophils % 0.4 % (0.0-0.8); Eosinophils # 0.1 10*3/uL (0.0-0.87); Eosinophils % 0.5 % (0.00-10.9); Hematocrit 35.8 VOL% (35.7-47.0); Hemoglobin 11.5 GM/DL (12.0-16.0); Immature Granulocytes % 0.5 %; Immature Granulocytes Absolute 0.07 #; Lymphocytes # 0.4 10*3/uL (1.4-4.0); Lymphocytes % 3.2 % (21.3-54.2); Mean Corpuscular HGB Conc 32.1 GM/DL (32-36); Mean Corpuscular Volume 83.6 FL (87-102); Mean Platelet Volume 10.6 FL (9.6-12.0); Monocytes % 2.8 % (1.7-12.7); Neutrophils % 92.6 % (38.7-73.9); Platelet Count 244 T/CUMM (130-400); Red Blood Count 4.28 MC/CUMM (3.8-5.5); Red Cell Distribution Width 17.5 % (9.3-17.3); White Blood Count 13.1 T/CUMM (4-12)
[2021-11-09 14:06] LABS: Calcium 9.4 MG/DL (8.5-10.1); Osmolality,Calculated 292.7 MOS/KG (273-304); Potassium 4.3 MMOL/L (3.5-5.1)
[2021-11-09 14:08] LABS: Band Neutrophils 2 % (0-10); Lymphocytes 3 % (20-55); Segmented Neutrophils 93 % (50-85); Total Cells Counted 100
[2021-11-09 14:10] LABS: Platelet Estimate Adequate
[2021-11-09 14:11] LABS: Ovalocytes Slight
[2021-11-09] MEDS ORDERED: GLUCAGON 1 MG VIAL IM PRN (14:21)
[2021-11-09] MEDS ORDERED: ACETAMINOPHEN 325 MG TABLET PO PRN ×2 (14:21→14:24)
[2021-11-09] MEDS ORDERED: ONDANSETRON 4 MG/2 ML VIAL IV PRN (14:21)
[2021-11-09] MEDS ORDERED: ONDANSETRON 4 MG TABLET PO PRN (14:24)
[2021-11-09] MEDS ORDERED: SODIUM CHLORIDE 0.9% 1,000 ML IV STA (14:27)
[2021-11-09] MEDS ORDERED: DEXTROSE 5% NACL 0.45% 1,000 ML IV SCH (14:30)
[2021-11-09] MEDS ORDERED: DEXTROSE 50% 25 GM/50 ML SYRINGE IV PRN (14:38)
[2021-11-09] MEDS ORDERED: ENOXAPARIN 40 MG/0.4 ML SYRINGE SUBCUT SCH (15:00)
[2021-11-09 15:35] LABS: Bacteria,Urine Occasional /HPF (Few); Bilirubin,Urine Negative (Negative); Blood, Urine Negative (Negative); Glucose,Urine (UA) 50 mg/dL (Negative); Ketones,Urine Negative (Negative); Mucus,Urine Occasional /LPF (Occasional); Nitrite,Urine Negative (Negative); Protein,Urine Negative; RBC,Urine <1 /HPF (0-4); Squamous Epithelial Cell,Urine Occasional /HPF (0-10); Urine Appearance CLEAR (Clear); Urine Color Yellow (Yellow); Urine Specific Gravity 1.016 (1.001-1.035); Urine Urobilinogen < 2.0 EU/DL (<2.0)
[2021-11-09] MEDS: SODIUM CHLORIDE 0.9% 1,000 ML IV SCH (17:41)
[2021-11-09] MEDS: DOCUSATE SODIUM 100 MG CAPSULE PO SCH (22:37)
[2021-11-09] MEDS: MEMANTINE 10 MG TABLET PO SCH (22:37)
[2021-11-09] MEDS: ATORVASTATIN 40 MG TABLET PO SCH (22:37)
[2021-11-09] MEDS: amLODIPine 10 MG TABLET PO SCH (22:37)
[2021-11-09] MEDS: traZODone 50 MG TABLET PO SCH (22:37)
[2021-11-09] MEDS: DONEPEZIL 10 MG TABLET PO SCH (22:38)
[2021-11-10 05:56] LABS: Calcium 9.1 MG/DL (8.5-10.1); Osmolality,Calculated 292.8 MOS/KG (273-304); Potassium 3.8 MMOL/L (3.5-5.1)
[2021-11-10] MEDS ORDERED: fentaNYL 100 MCG/2 ML VIAL ONE (06:52)
[2021-11-10] MEDS ORDERED: propofoL 200 MG/20 ML VIAL IV ONE (06:52)
[2021-11-10] MEDS ORDERED: LIDOCAINE 2% 5 ML VIAL ONE (06:52)
[2021-11-10 07:20] LABS: Basophils # 0.1 10*3/uL (0.0-0.2); Basophils % 0.5 % (0.0-0.8); Eosinophils # 0.3 10*3/uL (0.0-0.87); Eosinophils % 2.3 % (0.00-10.9); Hematocrit 36.1 VOL% (35.7-47.0); Hemoglobin 11.4 GM/DL (12.0-16.0); Immature Granulocytes % 0.8 %; Lymphocytes # 1.3 10*3/uL (1.4-4.0); Lymphocytes % 9.8 % (21.3-54.2); Mean Corpuscular HGB Conc 31.6 GM/DL (32-36); Mean Corpuscular Volume 84.3 FL (87-102); Mean Platelet Volume 10.2 FL (9.6-12.0); Monocytes % 7.2 % (1.7-12.7); Neutrophils % 79.4 % (38.7-73.9); Platelet Count 246 T/CUMM (130-400); Red Blood Count 4.28 MC/CUMM (3.8-5.5); Red Cell Distribution Width 17.1 % (9.3-17.3); White Blood Count 13.2 T/CUMM (4-12)
[2021-11-10] MEDS ORDERED: KETOROLAC 30 MG/1 ML VIAL ONE (08:07)
[2021-11-10] MEDS ORDERED: ACETAMINOPHEN INJ 1,000 MG/100 ML VIAL IV ONE (08:07)
[2021-11-10] MEDS ORDERED: SEVOFLURANE 1 UNIT/15 MINUTE INH ONE (08:07)
[2021-11-10] MEDS ORDERED: ACETAMINOPHEN INJ 0 MG/0 ML VIAL IV ONE (08:07)
[2021-11-10] MEDS ORDERED: BACITRACIN OINT 0.9 GM PACK TOP ONE (08:13)
[2021-11-10] MEDS ORDERED: LACTATED RINGERS 1,000 ML IV ONE (08:15)
[2021-11-10] MEDS ORDERED: MORPHINE 2 MG/1 ML SYRINGE IV PRN (08:23)
[2021-11-10] MEDS: MULTIVITAMIN (CENTRUM) TABLET PO SCH (09:00)
[2021-11-10] MEDS: CETIRIZINE 10 MG TABLET PO SCH (09:00)
[2021-11-10] MEDS: MEMANTINE 10 MG TABLET PO SCH ×2 (09:00→22:50)
[2021-11-10] MEDS: ASPIRIN CHEW 81 MG TABLET PO SCH (09:00)
[2021-11-10] MEDS: PANTOPRAZOLE 40 MG TABLET PO SCH (09:00)
[2021-11-10] MEDS ORDERED: PANTOPRAZOLE 40 MG TABLET PO SCH (09:00)
[2021-11-10] MEDS: FERROUS SULFATE 325 MG TABLET PO SCH (09:00)
[2021-11-10] MEDS ORDERED: lisinopriL 20 MG TABLET PO SCH (09:00)
[2021-11-10] MEDS: DOCUSATE SODIUM 100 MG CAPSULE PO SCH ×2 (09:00→22:50)
[2021-11-10] MEDS: traZODone 50 MG TABLET PO SCH (22:48)
[2021-11-10] MEDS: DONEPEZIL 10 MG TABLET PO SCH (22:49)
[2021-11-10] MEDS: ATORVASTATIN 40 MG TABLET PO SCH (22:49)
[2021-11-10] MEDS: amLODIPine 10 MG TABLET PO SCH (22:50)
[2021-11-10] MEDS: HYDROcod/ACETAMIN 7.5-325 MG/15 ML UDCUP PER TUBE PRN (23:19)
[2021-11-11] MEDS: SODIUM CHLORIDE 0.9% 1,000 ML IV SCH ×2 (00:13→12:54)
[2021-11-11] MEDS: HYDROcod/ACETAMIN 7.5-325 MG/15 ML UDCUP PER TUBE PRN (04:24)
[2021-11-11 05:03] LABS: Basophils # 0.1 10*3/uL (0.0-0.2); Basophils % 0.4 % (0.0-0.8); Eosinophils # 0.4 10*3/uL (0.0-0.87); Eosinophils % 3.3 % (0.00-10.9); Hematocrit 30.8 VOL% (35.7-47.0); Hemoglobin 9.8 GM/DL (12.0-16.0); Immature Granulocytes % 0.6 %; Immature Granulocytes Absolute 0.07 #; Lymphocytes # 0.9 10*3/uL (1.4-4.0); Lymphocytes % 6.9 % (21.3-54.2); Mean Corpuscular HGB Conc 31.8 GM/DL (32-36); Mean Corpuscular Volume 84.6 FL (87-102); Mean Platelet Volume 10.4 FL (9.6-12.0); Monocytes % 7.6 % (1.7-12.7); Neutrophils % 81.2 % (38.7-73.9); Platelet Count 239 T/CUMM (130-400); Red Blood Count 3.64 MC/CUMM (3.8-5.5); White Blood Count 12.4 T/CUMM (4-12)
[2021-11-11 05:42] LABS: Calcium 8.2 MG/DL (8.5-10.1); Potassium 4.3 MMOL/L (3.5-5.1)
[2021-11-11] MEDS ORDERED: TICAGRELOR 90 MG TABLET PEG SCH (09:00)
[2021-11-11] MEDS: FERROUS SULFATE 325 MG TABLET PO SCH (09:44)
[2021-11-11] MEDS: DOCUSATE SODIUM 100 MG CAPSULE PO SCH (09:44)
[2021-11-11] MEDS: PANTOPRAZOLE 40 MG TABLET PO SCH (09:44)
[2021-11-11] MEDS: MULTIVITAMIN (CENTRUM) TABLET PO SCH (09:45)
[2021-11-11] MEDS: MEMANTINE 10 MG TABLET PO SCH (09:45)
[2021-11-11] MEDS: ASPIRIN CHEW 81 MG TABLET PO SCH (09:45)
[2021-11-11] MEDS: CETIRIZINE 10 MG TABLET PO SCH (09:46)
[2021-11-11 16:50] VITALS: BP 138/49
[2021-11-16] MEDS ORDERED: ERGOCALCIFEROL 50,000 UNIT CAPSULE PO SCH (09:00)
== END 2021-11-11 16:30 | DRG 480 ==
LOC: EDBD → SUATTDRO → EDUNIT# → N.ED 12:18 → N.3E 14:21
PROVIDERS: ADMIT Internal Medicine; ATTEND Internal Medicine

== ENCOUNTER 2021-11-11 23:38 | Inpatient (IN) ==
[2021-11-12] MEDS ORDERED: SODIUM CHLORIDE 0.9% 1,000 ML IV STA ×2 (00:26→03:30)
[2021-11-12 00:57] LABS: Basophils # 0.1 10*3/uL (0.0-0.2); Basophils % 0.3 % (0.0-0.8); Eosinophils % 0.2 % (0.00-10.9); Hematocrit 29.2 VOL% (35.7-47.0); Hemoglobin 9.4 GM/DL (12.0-16.0); Lymphocytes # 1.1 10*3/uL (1.4-4.0); Lymphocytes % 5.5 % (21.3-54.2); Mean Corpuscular HGB Conc 32.2 GM/DL (32-36); Mean Corpuscular Volume 83.9 FL (87-102); Mean Platelet Volume 10.5 FL (9.6-12.0); Monocytes % 5.9 % (1.7-12.7); Neutrophils % 87.1 % (38.7-73.9); Platelet Count 259 T/CUMM (130-400); Red Blood Count 3.48 MC/CUMM (3.8-5.5); Red Cell Distribution Width 17.2 % (9.3-17.3); White Blood Count 20.4 T/CUMM (4-12)
[2021-11-12 00:59] LABS: ABG Base Excess 4.4 MMOL/L (-2.5-2.5); ABG HCO3 28.1 MMOL/L (20-26); ABG Oxygen Saturation 81.4 % (95-100); ABG PCO2 36.6 MM HG (35-48); ABG PH 7.489 (7.35-7.45); ABG PO2 45.3 MM HG (80-95); ABG TCO2 25.4 MMOL/L (23-27)
[2021-11-12 01:07] LABS: INR 1.1; PT Patient Result 12.5 SECS (10.5-12.0)
[2021-11-12 01:14] LABS: Albumin 2.2 G/DL (3.4-5.0); Bilirubin,Total 0.7 MG/DL (0.20-1.00); Calcium 8.5 MG/DL (8.5-10.1); Osmolality,Calculated 297.7 MOS/KG (273-304); Potassium 4.2 MMOL/L (3.5-5.1); Total Protein 6.1 G/DL (6.4-8.2)
[2021-11-12 01:25] LABS: Band Neutrophils 2 % (0-10); Hypochromia Slight; Lymphocytes 2 % (20-55); Microcytosis Slight; Platelet Estimate Normal; Segmented Neutrophils 94 % (50-85); Total Cells Counted 100
[2021-11-12] MEDS ORDERED: PIPERACILLIN/TAZOBACTAM 3,375 MG in SODIUM CHLORIDE 0.9% 100 ML IV STA (01:38)
[2021-11-12 01:48] LABS: Bilirubin,Urine Negative (Negative); Blood, Urine NEGATIVE (Negative); Glucose,Urine (UA) Negative (Negative); Ketones,Urine Negative (Negative); Nitrite,Urine Negative (Negative); Protein,Urine 30 MG/DL; Urine Color Amber (Yellow)
[2021-11-12 02:06] LABS: Urine Appearance Slightly Hazy (Clear)
[2021-11-12] MEDS ORDERED: hydrALAZINE 20 MG/1 ML VIAL IV PRN (03:24)
[2021-11-12] MEDS ORDERED: DEXTROSE 50% 25 GM/50 ML SYRINGE IV PRN (03:24)
[2021-11-12] MEDS ORDERED: ONDANSETRON 4 MG/2 ML VIAL IV PRN (03:24)
[2021-11-12] MEDS ORDERED: GLUCAGON 1 MG VIAL IM PRN (03:24)
[2021-11-12] MEDS ORDERED: SODIUM CHLORIDE 0.9% 500 ML IV STA (03:30)
[2021-11-12] MEDS ORDERED: SODIUM CHLORIDE 0.9% 250 ML IV STA (03:31)
[2021-11-12] MEDS: LACTATED RINGERS 1,000 ML IV SCH (05:05)
[2021-11-12] MEDS: INSULIN LISPRO 100 UNIT/ML SUBCUT SCH ×3 (06:20→17:07)
[2021-11-12] MEDS: ALBUTEROL/IPRATROPIUM 3 ML NEB RESP TX SCH ×3 (07:50→20:15)
[2021-11-12] MEDS: lisinopriL 20 MG TABLET PEG SCH (09:00)
[2021-11-12] MEDS: PIPERACILLIN/TAZOBACTAM 3,375 MG in SODIUM CHLORIDE 0.9% 100 ML IV SCH ×2 (09:00→17:45)
[2021-11-12] MEDS: ASPIRIN CHEW 81 MG TABLET PO SCH (09:00)
[2021-11-12] MEDS: MULTIVITAMIN (CENTRUM) TABLET PEG SCH (09:00)
[2021-11-12] MEDS ORDERED: OMEPRAZOLE ODT 20 MG TABLET PEG SCH (09:00)
[2021-11-12] MEDS: FERROUS SULFATE 325 MG TABLET PO SCH (09:00)
[2021-11-12] MEDS: DOCUSATE SODIUM 100 MG CAPSULE PEG SCH ×2 (09:00→21:00)
[2021-11-12] MEDS: TICAGRELOR 90 MG TABLET PEG SCH ×2 (09:00→21:00)
[2021-11-12] MEDS ORDERED: PANTOPRAZOLE 40 MG TABLET PO SCH (09:00)
[2021-11-12] MEDS: CETIRIZINE 10 MG TABLET PEG SCH (09:00)
[2021-11-12] MEDS: OMEPRAZOLE ODT 20 MG TABLET PEG SCH (10:18)
[2021-11-12] MEDS: MEMANTINE 10 MG TABLET PER TUBE SCH ×2 (10:18→21:00)
[2021-11-12] MEDS: HYDROcod/ACETAMIN 7.5-325 MG/15 ML UDCUP PER TUBE PRN (10:18)
[2021-11-12] MEDS: DONEPEZIL 10 MG TABLET PEG SCH (21:00)
[2021-11-12] MEDS: ENOXAPARIN 40 MG/0.4 ML SYRINGE SUBCUT SCH (21:00)
[2021-11-12] MEDS: amLODIPine 10 MG TABLET PEG SCH (21:00)
[2021-11-12] MEDS: ATORVASTATIN 40 MG TABLET PEG SCH (21:00)
[2021-11-12] MEDS: traZODone 50 MG TABLET PEG SCH (21:00)
[2021-11-13] MEDS: PIPERACILLIN/TAZOBACTAM 3,375 MG in SODIUM CHLORIDE 0.9% 100 ML IV SCH ×3 (00:39→17:45)
[2021-11-13] MEDS: INSULIN LISPRO 100 UNIT/ML SUBCUT SCH ×4 (00:40→17:45)
[2021-11-13] MEDS: ALBUTEROL/IPRATROPIUM 3 ML NEB RESP TX SCH ×3 (01:20→13:10)
[2021-11-13] MEDS ORDERED: guaiFENesin 200 MG/10 ML UDCUP PO PRN (03:30)
[2021-11-13] MEDS: guaiFENesin 200 MG/10 ML UDCUP PER TUBE PRN ×2 (03:47→14:20)
[2021-11-13 05:40] LABS: Basophils % 0.3 % (0.0-0.8); Eosinophils # 0.2 10*3/uL (0.0-0.87); Eosinophils % 1.2 % (0.00-10.9); Hematocrit 25.6 VOL% (35.7-47.0); Hemoglobin 8.2 GM/DL (12.0-16.0); Immature Granulocytes % 0.9 %; Immature Granulocytes Absolute 0.11 #; Lymphocytes % 8.1 % (21.3-54.2); Mean Corpuscular Volume 84.8 FL (87-102); Mean Platelet Volume 10.4 FL (9.6-12.0); Monocytes % 5.3 % (1.7-12.7); Neutrophils % 84.2 % (38.7-73.9); Platelet Count 230 T/CUMM (130-400); Red Blood Count 3.02 MC/CUMM (3.8-5.5); Red Cell Distribution Width 17.4 % (9.3-17.3); White Blood Count 12.1 T/CUMM (4-12)
[2021-11-13 05:52] LABS: Calcium 8.9 MG/DL (8.5-10.1); Osmolality,Calculated 293.3 MOS/KG (273-304)
[2021-11-13 06:08] LABS: Anisocytosis 1+; Band Neutrophils 2 % (0-10); Eosinophils 2 % (0-10); Lymphocytes 9 % (20-55); Platelet Estimate Normal; Segmented Neutrophils 82 % (50-85); Total Cells Counted 100
[2021-11-13 06:09] LABS: Burr Cells Few; Poikilocytosis Slight
[2021-11-13] MEDS: HYDROcod/ACETAMIN 7.5-325 MG/15 ML UDCUP PER TUBE PRN ×2 (07:05→20:40)
[2021-11-13] MEDS: MULTIVITAMIN (CENTRUM) TABLET PEG SCH (09:45)
[2021-11-13] MEDS: DOCUSATE SODIUM 100 MG CAPSULE PEG SCH ×2 (09:45→20:32)
[2021-11-13] MEDS: lisinopriL 20 MG TABLET PEG SCH (09:45)
[2021-11-13] MEDS: MEMANTINE 10 MG TABLET PER TUBE SCH ×2 (09:45→20:32)
[2021-11-13] MEDS: TICAGRELOR 90 MG TABLET PEG SCH ×2 (09:45→20:31)
[2021-11-13] MEDS: OMEPRAZOLE ODT 20 MG TABLET PEG SCH (09:45)
[2021-11-13] MEDS: CETIRIZINE 10 MG TABLET PEG SCH (09:45)
[2021-11-13] MEDS: ASPIRIN CHEW 81 MG TABLET PO SCH (09:45)
[2021-11-13] MEDS: FERROUS SULFATE 325 MG TABLET PO SCH (09:45)
[2021-11-13] MEDS: LACTATED RINGERS 1,000 ML IV SCH (14:36)
[2021-11-13] MEDS: IPRATROPIUM 500 MCG/2.5 ML NEB RESP TX SCH (19:45)
[2021-11-13] MEDS: DONEPEZIL 10 MG TABLET PEG SCH (20:31)
[2021-11-13] MEDS: ATORVASTATIN 40 MG TABLET PEG SCH (20:32)
[2021-11-13] MEDS: ENOXAPARIN 40 MG/0.4 ML SYRINGE SUBCUT SCH (20:32)
[2021-11-13] MEDS: amLODIPine 10 MG TABLET PEG SCH (20:32)
[2021-11-13] MEDS: traZODone 50 MG TABLET PEG SCH (20:32)
[2021-11-14] MEDS: IPRATROPIUM 500 MCG/2.5 ML NEB RESP TX SCH ×4 (00:36→19:45)
[2021-11-14] MEDS: PIPERACILLIN/TAZOBACTAM 3,375 MG in SODIUM CHLORIDE 0.9% 100 ML IV SCH ×3 (01:17→16:50)
[2021-11-14] MEDS: INSULIN LISPRO 100 UNIT/ML SUBCUT SCH ×4 (01:18→18:29)
[2021-11-14] MEDS: guaiFENesin 200 MG/10 ML UDCUP PER TUBE PRN ×3 (01:46→20:25)
[2021-11-14 06:06] LABS: Basophils # 0.1 10*3/uL (0.0-0.2); Basophils % 0.3 % (0.0-0.8); Eosinophils # 0.4 10*3/uL (0.0-0.87); Eosinophils % 2.4 % (0.00-10.9); Hematocrit 28.8 VOL% (35.7-47.0); Hemoglobin 8.9 GM/DL (12.0-16.0); Immature Granulocytes % 0.8 %; Immature Granulocytes Absolute 0.11 #; Lymphocytes # 1.1 10*3/uL (1.4-4.0); Lymphocytes % 7.7 % (21.3-54.2); Mean Corpuscular HGB Conc 30.9 GM/DL (32-36); Mean Corpuscular Volume 85.5 FL (87-102); Mean Platelet Volume 9.9 FL (9.6-12.0); Monocytes % 3.7 % (1.7-12.7); Neutrophils % 85.1 % (38.7-73.9); Platelet Count 283 T/CUMM (130-400); Red Blood Count 3.37 MC/CUMM (3.8-5.5); Red Cell Distribution Width 17.2 % (9.3-17.3); White Blood Count 14.5 T/CUMM (4-12)
[2021-11-14 06:32] LABS: Calcium 8.9 MG/DL (8.5-10.1); Osmolality,Calculated 289.3 MOS/KG (273-304); Potassium 4.6 MMOL/L (3.5-5.1)
[2021-11-14] MEDS: MULTIVITAMIN (CENTRUM) TABLET PEG SCH (09:33)
[2021-11-14] MEDS: OMEPRAZOLE ODT 20 MG TABLET PEG SCH (09:33)
[2021-11-14] MEDS: TICAGRELOR 90 MG TABLET PEG SCH ×2 (09:33→20:30)
[2021-11-14] MEDS: ASPIRIN CHEW 81 MG TABLET PO SCH (09:33)
[2021-11-14] MEDS: lisinopriL 20 MG TABLET PEG SCH (09:33)
[2021-11-14] MEDS: FERROUS SULFATE 325 MG TABLET PO SCH (09:33)
[2021-11-14] MEDS: DOCUSATE SODIUM 100 MG CAPSULE PEG SCH (09:33)
[2021-11-14] MEDS: MEMANTINE 10 MG TABLET PER TUBE SCH ×2 (09:33→20:30)
[2021-11-14] MEDS: CETIRIZINE 10 MG TABLET PEG SCH (09:33)
[2021-11-14] MEDS: HYDROcod/ACETAMIN 7.5-325 MG/15 ML UDCUP PER TUBE PRN (18:23)
[2021-11-14] MEDS: DONEPEZIL 10 MG TABLET PEG SCH (20:30)
[2021-11-14] MEDS: ATORVASTATIN 40 MG TABLET PEG SCH (20:30)
[2021-11-14] MEDS: DOCUSATE SODIUM 100 MG/10 ML UDCUP PO SCH (20:30)
[2021-11-14] MEDS: amLODIPine 10 MG TABLET PEG SCH (20:30)
[2021-11-14] MEDS: traZODone 50 MG TABLET PEG SCH (20:30)
[2021-11-14] MEDS: ENOXAPARIN 40 MG/0.4 ML SYRINGE SUBCUT SCH (20:31)
[2021-11-15] MEDS: INSULIN LISPRO 100 UNIT/ML SUBCUT SCH ×4 (00:33→18:06)
[2021-11-15] MEDS: IPRATROPIUM 500 MCG/2.5 ML NEB RESP TX SCH ×4 (01:21→19:31)
[2021-11-15] MEDS: HYDROcod/ACETAMIN 7.5-325 MG/15 ML UDCUP PER TUBE PRN ×3 (01:35→20:28)
[2021-11-15] MEDS: PIPERACILLIN/TAZOBACTAM 3,375 MG in SODIUM CHLORIDE 0.9% 100 ML IV SCH ×3 (01:35→16:06)
[2021-11-15 05:57] LABS: Basophils # 0.1 10*3/uL (0.0-0.2); Basophils % 0.4 % (0.0-0.8); Eosinophils # 0.3 10*3/uL (0.0-0.87); Eosinophils % 2.3 % (0.00-10.9); Hematocrit 25.5 VOL% (35.7-47.0); Hemoglobin 7.9 GM/DL (12.0-16.0); Immature Granulocytes % 0.9 %; Immature Granulocytes Absolute 0.12 #; Lymphocytes # 1.3 10*3/uL (1.4-4.0); Lymphocytes % 9.6 % (21.3-54.2); Mean Corpuscular Volume 85.9 FL (87-102); Mean Platelet Volume 10.4 FL (9.6-12.0); Monocytes % 5.6 % (1.7-12.7); Neutrophils % 81.2 % (38.7-73.9); Platelet Count 341 T/CUMM (130-400); Red Blood Count 2.97 MC/CUMM (3.8-5.5); Red Cell Distribution Width 17.1 % (9.3-17.3); White Blood Count 13.1 T/CUMM (4-12)
[2021-11-15 06:24] LABS: Calcium 8.8 MG/DL (8.5-10.1); Osmolality,Calculated 293.3 MOS/KG (273-304); Potassium 4.4 MMOL/L (3.5-5.1)
[2021-11-15] MEDS: MULTIVITAMIN (CENTRUM) TABLET PEG SCH (09:11)
[2021-11-15] MEDS: FERROUS SULFATE 325 MG TABLET PO SCH (09:11)
[2021-11-15] MEDS: ASPIRIN CHEW 81 MG TABLET PO SCH (09:11)
[2021-11-15] MEDS: MEMANTINE 10 MG TABLET PER TUBE SCH ×2 (09:11→20:24)
[2021-11-15] MEDS: TICAGRELOR 90 MG TABLET PEG SCH ×2 (09:11→20:24)
[2021-11-15] MEDS: lisinopriL 20 MG TABLET PEG SCH (09:11)
[2021-11-15] MEDS: DOCUSATE SODIUM 100 MG/10 ML UDCUP PO SCH ×2 (09:11→20:28)
[2021-11-15] MEDS: OMEPRAZOLE ODT 20 MG TABLET PEG SCH (09:12)
[2021-11-15] MEDS: CETIRIZINE 10 MG TABLET PEG SCH (09:13)
[2021-11-15] MEDS ORDERED: BISACODYL 5 MG TABLET PO ONE (15:41)
[2021-11-15] MEDS: DONEPEZIL 10 MG TABLET PEG SCH (20:24)
[2021-11-15] MEDS: ENOXAPARIN 40 MG/0.4 ML SYRINGE SUBCUT SCH (20:24)
[2021-11-15] MEDS: amLODIPine 10 MG TABLET PEG SCH (20:24)
[2021-11-15] MEDS: traZODone 50 MG TABLET PEG SCH (20:24)
[2021-11-15] MEDS: ATORVASTATIN 40 MG TABLET PEG SCH (20:24)
[2021-11-16] MEDS: IPRATROPIUM 500 MCG/2.5 ML NEB RESP TX SCH ×4 (01:33→20:38)
[2021-11-16] MEDS: INSULIN LISPRO 100 UNIT/ML SUBCUT SCH ×5 (01:50→23:35)
[2021-11-16] MEDS: PIPERACILLIN/TAZOBACTAM 3,375 MG in SODIUM CHLORIDE 0.9% 100 ML IV SCH ×3 (02:00→16:48)
[2021-11-16 06:03] LABS: Basophils # 0.1 10*3/uL (0.0-0.2); Basophils % 0.5 % (0.0-0.8); Eosinophils # 0.3 10*3/uL (0.0-0.87); Eosinophils % 2.5 % (0.00-10.9); Hemoglobin 7.2 GM/DL (12.0-16.0); Immature Granulocytes % 1.2 %; Immature Granulocytes Absolute 0.13 #; Lymphocytes # 1.6 10*3/uL (1.4-4.0); Lymphocytes % 13.9 % (21.3-54.2); Mean Corpuscular HGB Conc 31.3 GM/DL (32-36); Mean Corpuscular Volume 86.8 FL (87-102); Mean Platelet Volume 10.2 FL (9.6-12.0); Monocytes % 7.1 % (1.7-12.7); Neutrophils % 74.8 % (38.7-73.9); Platelet Count 348 T/CUMM (130-400); Red Blood Count 2.65 MC/CUMM (3.8-5.5); Red Cell Distribution Width 17.1 % (9.3-17.3); White Blood Count 11.2 T/CUMM (4-12)
[2021-11-16] MEDS: ERGOCALCIFEROL 50,000 UNIT CAPSULE PO SCH (06:11)
[2021-11-16 06:18] LABS: Calcium 8.6 MG/DL (8.5-10.1); Osmolality,Calculated 296.3 MOS/KG (273-304); Potassium 4.7 MMOL/L (3.5-5.1)
[2021-11-16] MEDS: ASPIRIN CHEW 81 MG TABLET PO SCH (10:50)
[2021-11-16] MEDS: BISACODYL 5 MG TABLET PO SCH (10:51)
[2021-11-16] MEDS: OMEPRAZOLE ODT 20 MG TABLET PEG SCH (10:51)
[2021-11-16] MEDS: TICAGRELOR 90 MG TABLET PEG SCH ×2 (10:51→20:00)
[2021-11-16] MEDS: MULTIVITAMIN (CENTRUM) TABLET PEG SCH (10:51)
[2021-11-16] MEDS: CETIRIZINE 10 MG TABLET PEG SCH (10:51)
[2021-11-16] MEDS: FERROUS SULFATE 325 MG TABLET PO SCH (10:51)
[2021-11-16] MEDS: POLYETHYLENE GLYCOL POWDER 17 GM PACK PO SCH (10:51)
[2021-11-16] MEDS: MEMANTINE 10 MG TABLET PER TUBE SCH ×2 (10:51→20:00)
[2021-11-16] MEDS: DOCUSATE SODIUM 100 MG/10 ML UDCUP PO SCH ×2 (10:51→20:15)
[2021-11-16] MEDS: lisinopriL 20 MG TABLET PEG SCH (10:51)
[2021-11-16] MEDS: HYDROcod/ACETAMIN 7.5-325 MG/15 ML UDCUP PER TUBE PRN ×2 (17:59→23:35)
[2021-11-16] MEDS: VANCOMYCIN INJ 1,000 MG in SODIUM CHLORIDE 0.9% 250 ML IV SCH (18:33)
[2021-11-16] MEDS: traZODone 50 MG TABLET PEG SCH (20:00)
[2021-11-16] MEDS: amLODIPine 10 MG TABLET PEG SCH (20:00)
[2021-11-16] MEDS: ATORVASTATIN 40 MG TABLET PEG SCH (20:00)
[2021-11-16] MEDS: FUROSEMIDE 20 MG/2 ML VIAL IV SCH (20:13)
[2021-11-16] MEDS: DONEPEZIL 10 MG TABLET PEG SCH (20:15)
[2021-11-17] MEDS: PIPERACILLIN/TAZOBACTAM 3,375 MG in SODIUM CHLORIDE 0.9% 100 ML IV SCH ×3 (00:50→18:42)
[2021-11-17] MEDS: IPRATROPIUM 500 MCG/2.5 ML NEB RESP TX SCH ×4 (01:28→20:31)
[2021-11-17 05:21] LABS: Basophils # 0.1 10*3/uL (0.0-0.2); Basophils % 0.4 % (0.0-0.8); Eosinophils # 0.3 10*3/uL (0.0-0.87); Eosinophils % 2.1 % (0.00-10.9); Hematocrit 23.8 VOL% (35.7-47.0); Hemoglobin 7.4 GM/DL (12.0-16.0); Immature Granulocytes % 1.3 %; Immature Granulocytes Absolute 0.18 #; Lymphocytes # 1.1 10*3/uL (1.4-4.0); Mean Corpuscular HGB Conc 31.1 GM/DL (32-36); Mean Corpuscular Volume 85.6 FL (87-102); Mean Platelet Volume 9.4 FL (9.6-12.0); Monocytes % 5.5 % (1.7-12.7); Neutrophils % 82.7 % (38.7-73.9); Platelet Count 398 T/CUMM (130-400); Red Blood Count 2.78 MC/CUMM (3.8-5.5); Red Cell Distribution Width 17.1 % (9.3-17.3); White Blood Count 13.7 T/CUMM (4-12)
[2021-11-17] MEDS: INSULIN LISPRO 100 UNIT/ML SUBCUT SCH ×3 (05:35→18:50)
[2021-11-17 05:48] LABS: Osmolality,Calculated 296.3 MOS/KG (273-304); Potassium 4.5 MMOL/L (3.5-5.1)
[2021-11-17] MEDS: HYDROcod/ACETAMIN 7.5-325 MG/15 ML UDCUP PER TUBE PRN ×2 (06:25→17:27)
[2021-11-17] MEDS: MULTIVITAMIN (CENTRUM) TABLET PEG SCH (09:45)
[2021-11-17] MEDS: lisinopriL 20 MG TABLET PEG SCH (09:45)
[2021-11-17] MEDS: POLYETHYLENE GLYCOL POWDER 17 GM PACK PO SCH (09:45)
[2021-11-17] MEDS: CETIRIZINE 10 MG TABLET PEG SCH (09:45)
[2021-11-17] MEDS: TICAGRELOR 90 MG TABLET PEG SCH ×2 (09:45→20:51)
[2021-11-17] MEDS: FUROSEMIDE 20 MG/2 ML VIAL IV SCH ×2 (09:45→20:57)
[2021-11-17] MEDS: DOCUSATE SODIUM 100 MG/10 ML UDCUP PO SCH ×2 (09:46→20:51)
[2021-11-17] MEDS: MEMANTINE 10 MG TABLET PER TUBE SCH ×2 (09:46→20:51)
[2021-11-17] MEDS: BISACODYL 5 MG TABLET PO SCH (09:46)
[2021-11-17] MEDS: FERROUS SULFATE 325 MG TABLET PO SCH (09:46)
[2021-11-17] MEDS: OMEPRAZOLE ODT 20 MG TABLET PEG SCH (09:47)
[2021-11-17] MEDS: VANCOMYCIN INJ 1,000 MG in SODIUM CHLORIDE 0.9% 250 ML IV SCH (17:27)
[2021-11-17] MEDS: DONEPEZIL 10 MG TABLET PEG SCH (20:51)
[2021-11-17] MEDS: traZODone 50 MG TABLET PEG SCH (20:51)
[2021-11-17] MEDS: ATORVASTATIN 40 MG TABLET PEG SCH (20:52)
[2021-11-17] MEDS: amLODIPine 10 MG TABLET PEG SCH (20:52)
[2021-11-18] MEDS: PIPERACILLIN/TAZOBACTAM 3,375 MG in SODIUM CHLORIDE 0.9% 100 ML IV SCH ×3 (01:00→18:41)
[2021-11-18] MEDS: INSULIN LISPRO 100 UNIT/ML SUBCUT SCH ×4 (01:00→17:07)
[2021-11-18] MEDS: IPRATROPIUM 500 MCG/2.5 ML NEB RESP TX SCH ×4 (02:25→19:25)
[2021-11-18 05:29] LABS: Basophils # 0.1 10*3/uL (0.0-0.2); Basophils % 0.4 % (0.0-0.8); Eosinophils # 0.3 10*3/uL (0.0-0.87); Eosinophils % 1.7 % (0.00-10.9); Hematocrit 21.9 VOL% (35.7-47.0); Hemoglobin 6.9 GM/DL (12.0-16.0); Immature Granulocytes % 1.5 %; Immature Granulocytes Absolute 0.24 #; Lymphocytes # 1.4 10*3/uL (1.4-4.0); Lymphocytes % 8.6 % (21.3-54.2); Mean Corpuscular HGB Conc 31.5 GM/DL (32-36); Mean Corpuscular Volume 86.2 FL (87-102); Monocytes % 5.9 % (1.7-12.7); Neutrophils % 81.9 % (38.7-73.9); Platelet Count 464 T/CUMM (130-400); Red Blood Count 2.54 MC/CUMM (3.8-5.5); Red Cell Distribution Width 17.2 % (9.3-17.3); White Blood Count 16.5 T/CUMM (4-12)
[2021-11-18 05:46] LABS: Calcium 8.7 MG/DL (8.5-10.1); Osmolality,Calculated 303.8 MOS/KG (273-304); Potassium 4.4 MMOL/L (3.5-5.1)
[2021-11-18] MEDS: OMEPRAZOLE ODT 20 MG TABLET PEG SCH (09:47)
[2021-11-18] MEDS: CETIRIZINE 10 MG TABLET PEG SCH (09:47)
[2021-11-18] MEDS: TICAGRELOR 90 MG TABLET PEG SCH ×2 (09:47→21:27)
[2021-11-18] MEDS: BISACODYL 5 MG TABLET PO SCH (09:47)
[2021-11-18] MEDS: FERROUS SULFATE 325 MG TABLET PO SCH (09:47)
[2021-11-18] MEDS: lisinopriL 20 MG TABLET PEG SCH (09:48)
[2021-11-18] MEDS: DOCUSATE SODIUM 100 MG/10 ML UDCUP PO SCH ×2 (09:48→21:27)
[2021-11-18] MEDS: MEMANTINE 10 MG TABLET PER TUBE SCH ×2 (09:48→21:26)
[2021-11-18] MEDS: POLYETHYLENE GLYCOL POWDER 17 GM PACK PO SCH (09:48)
[2021-11-18] MEDS: FUROSEMIDE 20 MG/2 ML VIAL IV SCH ×2 (09:48→21:28)
[2021-11-18] MEDS: MULTIVITAMIN (CENTRUM) TABLET PEG SCH (09:48)
[2021-11-18] MEDS: VANCOMYCIN INJ 1,000 MG in SODIUM CHLORIDE 0.9% 250 ML IV SCH (17:01)
[2021-11-18] MEDS ORDERED: SODIUM CHLORIDE 0.9% 1,000 ML IV PRN (18:16)
[2021-11-18] MEDS: ATORVASTATIN 40 MG TABLET PEG SCH (21:26)
[2021-11-18] MEDS: traZODone 50 MG TABLET PEG SCH (21:26)
[2021-11-18] MEDS: amLODIPine 10 MG TABLET PEG SCH (21:27)
[2021-11-18] MEDS: DONEPEZIL 10 MG TABLET PEG SCH (21:27)
[2021-11-18] MEDS: PANTOPRAZOLE 40 MG VIAL IV SCH (21:28)
[2021-11-18] MEDS: HYDROcod/ACETAMIN 7.5-325 MG/15 ML UDCUP PER TUBE PRN (23:19)
[2021-11-19] MEDS: INSULIN LISPRO 100 UNIT/ML SUBCUT SCH ×4 (00:34→17:00)
[2021-11-19] MEDS: PIPERACILLIN/TAZOBACTAM 3,375 MG in SODIUM CHLORIDE 0.9% 100 ML IV SCH ×3 (01:37→16:42)
[2021-11-19] MEDS: IPRATROPIUM 500 MCG/2.5 ML NEB RESP TX SCH ×4 (01:48→19:41)
[2021-11-19 06:02] LABS: Basophils # 0.1 10*3/uL (0.0-0.2); Basophils % 0.5 % (0.0-0.8); Eosinophils # 0.1 10*3/uL (0.0-0.87); Eosinophils % 0.7 % (0.00-10.9); Hematocrit 22.1 VOL% (35.7-47.0); Immature Granulocytes % 1.3 %; Immature Granulocytes Absolute 0.23 #; Lymphocytes # 1.4 10*3/uL (1.4-4.0); Lymphocytes % 8.3 % (21.3-54.2); Mean Corpuscular HGB Conc 31.7 GM/DL (32-36); Mean Corpuscular Volume 86.3 FL (87-102); Mean Platelet Volume 10.4 FL (9.6-12.0); Monocytes % 6.5 % (1.7-12.7); Neutrophils % 82.7 % (38.7-73.9); Platelet Count 455 T/CUMM (130-400); Red Blood Count 2.56 MC/CUMM (3.8-5.5); Red Cell Distribution Width 17.2 % (9.3-17.3); White Blood Count 17.2 T/CUMM (4-12)
[2021-11-19 06:16] LABS: Calcium 8.5 MG/DL (8.5-10.1); Osmolality,Calculated 310.8 MOS/KG (273-304); Potassium 4.5 MMOL/L (3.5-5.1)
[2021-11-19] MEDS: lisinopriL 20 MG TABLET PEG SCH (09:56)
[2021-11-19] MEDS: TICAGRELOR 90 MG TABLET PEG SCH ×2 (09:56→21:43)
[2021-11-19] MEDS: MEMANTINE 10 MG TABLET PER TUBE SCH ×2 (09:56→21:43)
[2021-11-19] MEDS: CETIRIZINE 10 MG TABLET PEG SCH (09:56)
[2021-11-19] MEDS: MULTIVITAMIN (CENTRUM) TABLET PEG SCH (09:56)
[2021-11-19] MEDS: FERROUS SULFATE 325 MG TABLET PO SCH (09:56)
[2021-11-19] MEDS: POLYETHYLENE GLYCOL POWDER 17 GM PACK PO SCH (09:57)
[2021-11-19] MEDS: PANTOPRAZOLE 40 MG VIAL IV SCH ×2 (09:58→21:43)
[2021-11-19] MEDS: BISACODYL 5 MG TABLET PO SCH (11:08)
[2021-11-19] MEDS: FUROSEMIDE 20 MG/2 ML VIAL IV SCH (11:08)
[2021-11-19] MEDS: DOCUSATE SODIUM 100 MG/10 ML UDCUP PO SCH (11:08)
[2021-11-19] MEDS: VANCOMYCIN INJ 1,000 MG in SODIUM CHLORIDE 0.9% 250 ML IV SCH (14:06)
[2021-11-19] MEDS: ATORVASTATIN 40 MG TABLET PEG SCH (21:42)
[2021-11-19] MEDS: traZODone 50 MG TABLET PEG SCH (21:42)
[2021-11-19] MEDS: DONEPEZIL 10 MG TABLET PEG SCH (21:43)
[2021-11-19] MEDS: amLODIPine 10 MG TABLET PEG SCH (21:44)
[2021-11-20] MEDS: IPRATROPIUM 500 MCG/2.5 ML NEB RESP TX SCH ×3 (00:42→12:09)
[2021-11-20 05:07] LABS: Basophils # 0.1 10*3/uL (0.0-0.2); Basophils % 0.5 % (0.0-0.8); Eosinophils # 0.4 10*3/uL (0.0-0.87); Eosinophils % 2.2 % (0.00-10.9); Hematocrit 24.5 VOL% (35.7-47.0); Hemoglobin 7.7 GM/DL (12.0-16.0); Immature Granulocytes % 1.6 %; Immature Granulocytes Absolute 0.26 #; Lymphocytes # 2.2 10*3/uL (1.4-4.0); Lymphocytes % 13.5 % (21.3-54.2); Mean Corpuscular HGB Conc 31.4 GM/DL (32-36); Mean Corpuscular Volume 88.1 FL (87-102); Mean Platelet Volume 10.1 FL (9.6-12.0); Monocytes % 6.4 % (1.7-12.7); Neutrophils % 75.8 % (38.7-73.9); Platelet Count 548 T/CUMM (130-400); Red Blood Count 2.78 MC/CUMM (3.8-5.5); Red Cell Distribution Width 17.6 % (9.3-17.3); White Blood Count 16.5 T/CUMM (4-12)
[2021-11-20] MEDS: VANCOMYCIN INJ 1,000 MG in SODIUM CHLORIDE 0.9% 250 ML IV SCH (05:48)
[2021-11-20] MEDS: INSULIN LISPRO 100 UNIT/ML SUBCUT SCH ×4 (06:19→18:06)
[2021-11-20] MEDS: lisinopriL 20 MG TABLET PEG SCH (10:42)
[2021-11-20] MEDS: MEMANTINE 10 MG TABLET PER TUBE SCH ×2 (10:42→21:10)
[2021-11-20] MEDS: CETIRIZINE 10 MG TABLET PEG SCH (10:42)
[2021-11-20] MEDS: FERROUS SULFATE 325 MG TABLET PO SCH (10:42)
[2021-11-20] MEDS: MULTIVITAMIN (CENTRUM) TABLET PEG SCH (10:42)
[2021-11-20] MEDS: TICAGRELOR 90 MG TABLET PEG SCH ×2 (10:42→21:10)
[2021-11-20] MEDS: POLYETHYLENE GLYCOL POWDER 17 GM PACK PO SCH (10:43)
[2021-11-20] MEDS: PANTOPRAZOLE 40 MG VIAL IV SCH ×2 (10:43→21:11)
[2021-11-20] MEDS: ATORVASTATIN 40 MG TABLET PEG SCH (21:10)
[2021-11-20] MEDS: DONEPEZIL 10 MG TABLET PEG SCH (21:10)
[2021-11-20] MEDS: traZODone 50 MG TABLET PEG SCH (21:10)
[2021-11-20] MEDS: amLODIPine 10 MG TABLET PEG SCH (21:10)
[2021-11-21] MEDS: IPRATROPIUM 500 MCG/2.5 ML NEB RESP TX SCH ×5 (00:12→23:24)
[2021-11-21] MEDS: INSULIN LISPRO 100 UNIT/ML SUBCUT SCH ×4 (02:51→17:02)
[2021-11-21 06:50] LABS: Basophils # 0.1 10*3/uL (0.0-0.2); Basophils % 0.9 % (0.0-0.8); Eosinophils # 0.2 10*3/uL (0.0-0.87); Eosinophils % 1.6 % (0.00-10.9); Hematocrit 23.5 VOL% (35.7-47.0); Hemoglobin 7.3 GM/DL (12.0-16.0); Lymphocytes # 1.2 10*3/uL (1.4-4.0); Lymphocytes % 9.8 % (21.3-54.2); Mean Corpuscular HGB Conc 31.1 GM/DL (32-36); Mean Corpuscular Volume 88.7 FL (87-102); Mean Platelet Volume 10.1 FL (9.6-12.0); Monocytes % 6.3 % (1.7-12.7); Neutrophils % 80.1 % (38.7-73.9); Platelet Count 549 T/CUMM (130-400); Red Blood Count 2.65 MC/CUMM (3.8-5.5); Red Cell Distribution Width 17.7 % (9.3-17.3); White Blood Count 12.5 T/CUMM (4-12)
[2021-11-21 07:13] LABS: Calcium 8.8 MG/DL (8.5-10.1); Osmolality,Calculated 295.1 MOS/KG (273-304); Potassium 4.4 MMOL/L (3.5-5.1)
[2021-11-21] MEDS: PANTOPRAZOLE 40 MG VIAL IV SCH ×2 (09:22→20:45)
[2021-11-21] MEDS: TICAGRELOR 90 MG TABLET PEG SCH ×2 (09:22→20:46)
[2021-11-21] MEDS: MULTIVITAMIN (CENTRUM) TABLET PEG SCH (09:22)
[2021-11-21] MEDS: MEMANTINE 10 MG TABLET PER TUBE SCH ×2 (09:22→20:45)
[2021-11-21] MEDS: lisinopriL 20 MG TABLET PEG SCH (09:23)
[2021-11-21] MEDS: POLYETHYLENE GLYCOL POWDER 17 GM PACK PO SCH (09:23)
[2021-11-21] MEDS: VANCOMYCIN INJ 1,000 MG in SODIUM CHLORIDE 0.9% 250 ML IV SCH (09:23)
[2021-11-21] MEDS: CETIRIZINE 10 MG TABLET PEG SCH (09:23)
[2021-11-21] MEDS: FERROUS SULFATE 325 MG TABLET PO SCH (09:23)
[2021-11-21] MEDS: DONEPEZIL 10 MG TABLET PEG SCH (20:45)
[2021-11-21] MEDS: ATORVASTATIN 40 MG TABLET PEG SCH (20:45)
[2021-11-21] MEDS: amLODIPine 10 MG TABLET PEG SCH (20:45)
[2021-11-21] MEDS: traZODone 50 MG TABLET PEG SCH (20:45)
[2021-11-22] MEDS: INSULIN LISPRO 100 UNIT/ML SUBCUT SCH ×4 (00:54→18:05)
[2021-11-22] MEDS: IPRATROPIUM 500 MCG/2.5 ML NEB RESP TX SCH ×4 (01:20→19:35)
[2021-11-22 06:16] LABS: Basophils # 0.1 10*3/uL (0.0-0.2); Basophils % 0.6 % (0.0-0.8); Eosinophils # 0.2 10*3/uL (0.0-0.87); Eosinophils % 1.9 % (0.00-10.9); Hemoglobin 7.8 GM/DL (12.0-16.0); Lymphocytes # 1.1 10*3/uL (1.4-4.0); Lymphocytes % 9.4 % (21.3-54.2); Mean Corpuscular HGB Conc 31.2 GM/DL (32-36); Mean Corpuscular Volume 89.3 FL (87-102); Mean Platelet Volume 10.1 FL (9.6-12.0); Monocytes % 5.9 % (1.7-12.7); Platelet Count 601 T/CUMM (130-400); Red Cell Distribution Width 17.6 % (9.3-17.3); White Blood Count 12.2 T/CUMM (4-12)
[2021-11-22 06:48] LABS: Calcium 9.1 MG/DL (8.5-10.1); Osmolality,Calculated 286.7 MOS/KG (273-304); Potassium 4.7 MMOL/L (3.5-5.1)
[2021-11-22] MEDS: VANCOMYCIN INJ 1,000 MG in SODIUM CHLORIDE 0.9% 250 ML IV SCH (09:55)
[2021-11-22] MEDS: POLYETHYLENE GLYCOL POWDER 17 GM PACK PO SCH (09:56)
[2021-11-22] MEDS: MULTIVITAMIN (CENTRUM) TABLET PEG SCH (09:56)
[2021-11-22] MEDS: TICAGRELOR 90 MG TABLET PEG SCH ×2 (09:56→21:43)
[2021-11-22] MEDS: FERROUS SULFATE 325 MG TABLET PO SCH (09:57)
[2021-11-22] MEDS: lisinopriL 20 MG TABLET PEG SCH (09:57)
[2021-11-22] MEDS: CETIRIZINE 10 MG TABLET PEG SCH (09:57)
[2021-11-22] MEDS: PANTOPRAZOLE 40 MG VIAL IV SCH ×2 (09:57→21:43)
[2021-11-22] MEDS: MEMANTINE 10 MG TABLET PER TUBE SCH ×2 (09:57→21:43)
[2021-11-22] MEDS: ACETAMINOPHEN 325 MG TABLET PEG PRN (12:19)
[2021-11-22] MEDS: traZODone 50 MG TABLET PEG SCH (21:43)
[2021-11-22] MEDS: DONEPEZIL 10 MG TABLET PEG SCH (21:43)
[2021-11-22] MEDS: amLODIPine 10 MG TABLET PEG SCH (21:43)
[2021-11-22] MEDS: ATORVASTATIN 40 MG TABLET PEG SCH (21:43)
[2021-11-23] MEDS: IPRATROPIUM 500 MCG/2.5 ML NEB RESP TX SCH ×3 (00:46→12:50)
[2021-11-23] MEDS: INSULIN LISPRO 100 UNIT/ML SUBCUT SCH ×4 (01:58→18:33)
[2021-11-23] MEDS: ERGOCALCIFEROL 50,000 UNIT CAPSULE PO SCH (05:03)
[2021-11-23] MEDS: ACETAMINOPHEN 325 MG TABLET PEG PRN (05:04)
[2021-11-23] MEDS: PANTOPRAZOLE 40 MG VIAL IV SCH (08:23)
[2021-11-23] MEDS: TICAGRELOR 90 MG TABLET PEG SCH (08:24)
[2021-11-23] MEDS: FERROUS SULFATE 325 MG TABLET PO SCH (08:24)
[2021-11-23] MEDS: lisinopriL 20 MG TABLET PEG SCH (08:24)
[2021-11-23] MEDS: MEMANTINE 10 MG TABLET PER TUBE SCH (08:24)
[2021-11-23] MEDS: MULTIVITAMIN (CENTRUM) TABLET PEG SCH (08:24)
[2021-11-23] MEDS: CETIRIZINE 10 MG TABLET PEG SCH (08:24)
[2021-11-23] MEDS: POLYETHYLENE GLYCOL POWDER 17 GM PACK PO SCH (08:24)
[2021-11-23] MEDS ORDERED: HYDROcod/ACETAMIN 7.5-325 MG/15 ML UDCUP PO PRN (09:41)
[2021-11-23 10:34] LABS: Basophils # 0.1 10*3/uL (0.0-0.2); Basophils % 0.6 % (0.0-0.8); Eosinophils # 0.3 10*3/uL (0.0-0.87); Eosinophils % 1.9 % (0.00-10.9); Hematocrit 24.9 VOL% (35.7-47.0); Hemoglobin 7.8 GM/DL (12.0-16.0); Immature Granulocytes % 0.8 %; Immature Granulocytes Absolute 0.13 #; Lymphocytes # 1.3 10*3/uL (1.4-4.0); Lymphocytes % 7.9 % (21.3-54.2); Mean Corpuscular HGB Conc 31.3 GM/DL (32-36); Mean Corpuscular Volume 89.2 FL (87-102); Mean Platelet Volume 9.7 FL (9.6-12.0); Monocytes % 5.2 % (1.7-12.7); Neutrophils % 83.6 % (38.7-73.9); Platelet Count 595 T/CUMM (130-400); Red Blood Count 2.79 MC/CUMM (3.8-5.5); Red Cell Distribution Width 17.2 % (9.3-17.3); White Blood Count 16.8 T/CUMM (4-12)
[2021-11-23 12:06] VITALS: BP 121/89
== END 2021-11-23 19:40 | DRG 177 ==
LOC: EDUNIT# → EDBD → N.ED 23:38 → SUATTDRO 11-12 03:24 → N.EDINP 11-12 03:24 → N.3E 11-12 12:47
PROVIDERS: ADMIT Internal Medicine; ATTEND Internal Medicine